=== PATIENT | female | born 1975 | race African-American/Black ===

== ENCOUNTER 2025-05-11 00:57 | Emergency (ER) | payer OTHER, SELFPAY ==
--- NOTE | ~2025-05-11 | XR_ITS ---
CLINICAL HISTORY: left hand 4th digit injury w deformity Exam: AP, lateral, and oblique views of the left hand. Comparison none provided. Findings: Hyperflexion of the DIP joint of the ring finger. Mild extension of the PIP joint of the ring finger. No acute fractures identified. No dislocation. Bony alignment is otherwise anatomic. Impression: 1. No fracture. 2. Hyperflexion of the DIP joint of the ring finger raising the possibility of extensor tendon injury. Clinical correlation advised. This document has been electronically signed by: Abhinav Wilkins MD on 05/11/2025 03:44:40
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
[2025-05-11 00:59] VITALS: BP 153/89; PULSE 111; RESP 20; TEMP 36.7; O2SAT 97; BMI 46.2
--- OUTSIDE RECORDS SUMMARY | 2025-05-11 02:24 | XMS_ITS | Encounter Summary ---
Author Organization [facility] Address [address] [place] [address] Care Team Providers Care Hide And Skin Colerer Name Role Phone Leyda Palacios Primary Care Provider [phone] Encounter Details Date Type Department Care Team (Late st Contact Info) Description 11/14/2023 [employer] Message [facility] Financial Clearance Department [address] [place] [address] Sandy Bledsoe Social History Tobacco Use Types Packs/Day Years Used Date Smoking Tobacco: Every Day Cigarettes Smokeless Tobacco: Never Comments:: Alcohol Use Standard Drinks/Week Comments No 0 (1 standard drink = 0.6 oz pur e alcohol) Comments Unknown Sex and Gender Information Value Date Recorded Sex Assigned at Female 07/05/2020 10:41 AM EST Legal Sex Female 7:28 AM EDT Gender Identity Female 07/05/2020 10:41 AM EST Sexual Orientation Straight 07/05/2020 10 :41 AM EST documented as of this encounter Plan of Treatment Not on file documented as of this encounter Visit Diagnoses Not on filedocumented in this encounter Care Teams Hide And Skin Colerer Relationship Specialty Start Date End Date Leyda Palacios [address] [facility] [address] [place] [address] PCP - General Internal Medicine 07/03/18 documented as of this encounter
--- OUTSIDE RECORDS SUMMARY | 2025-05-11 02:24 | XMS_ITS | Encounter Summary ---
Author Organization [facility] Address [address] [place] [address] Care Team Providers Care Station Master Name Role Phone Leyda Palacios Primary Care Provider [phone] Encounter Details Date Type Department Care Team (Late st Contact Info) Description 07/05/2020 [employer] Message [facility] [address] [place] [address] Yoshi Avila MD [address] [place] [address] Visit Follow-Up Question Social History Tobacco Use Types Packs/Day Years [...] AM EST documented as of this encounter Miscellaneous Notes * Telephone Encounter - Yoshi Avila MD - 07/05/2020 1:02 PM EST Please, see my note regarding the appointment today at 11:15 AM on July 05, 2020. The patient left without being seen. I tried to reestablish communication many times and failed. If she needs it she could be rescheduled also for Zoom teleneurology follow-up with me. Thank you. documented in this encounter Plan of Treatment Not on file documented as of this encounter Visit Diagnoses Not on filedocumented in this encounter Care Teams Station Master Relationship Specialty Start Date End Date Leyda Palacios [address] [address] PCP - General Internal Medicine 07/03/18 documented as of this encounter
--- OUTSIDE RECORDS SUMMARY | 2025-05-11 02:24 | XMS_ITS | Clinical Summary ---
Author Organization [facility] Address [address] [place] [address] Care Team Providers Care Groover Operator Name Role Phone Leyda Palacios Primary Care Provider [phone] Allergies Active Allergy Reactions Criticality Noted Date Comments Sulfamethoxazole-Trimethoprim Unknown 2011 Blueberry Anaphylaxis High Cyclobenzaprine Unknown,Itching High Omeprazole Hives,Itching 02/28/2024 Sulfa (Sulfonamide Antibiotics) Abdominal Pain Medications * This document contains information received from the source organization and may not represent a complete record from that organization. LORazepam (ATIVAN) 0.5 mg tablet Take 0.5 mg by mouth 2 times a day as needed. 03/08/20 17 Active VITAMIN D2 50,000 unit capsule Take 2,000 Units by mouth daily. 07/05/19 18 Active fluticasone (FLONASE) 50 mcg/actuation nasal spray Flonase 50 MCG/ACT Nasal Suspension USE 2 SPRAYS IN EACH NOSTRIL ONCE DAILY Quantity: 48; Refills: 3 [id number] GM Bottle Active MULTIVITAMIN WITH IRON (DAILY MULTIPLE VITAMINS/IRON ORAL) Daily Multiple Vitamins/Iron Oral Tablet TAKE 1 TABLET ONCE DAILY. Refills: 0 Active Active coenzyme Q10 100 mg capsule Take 100 mg by mouth daily. Active furosemide (LASIX) 20 mg tablet TAKE ONE-HALF TABLET BY MOUTH EVERY OTHER DAY NEEDED 15 tablet 5 08/08/19 18 Active betamethasone dipropionate (DIPROLENE) 0.05 % cream Apply 1 application topically to the affected area daily as needed. 0 01/26/20 18 Active clobetasol (OLUX) 0.05 % topical foam Apply 1 application topically to the affected area as needed. Active diazePAM (VALIUM) 5 mg tablet every 12 (twelve) hours. Active fluocinolone and shower cap 0.01 % oil 5 mL. Active cholecalciferol (VITAMIN D3) 2,000 unit tablet Take 1 tablet by mouth daily. Active ferrous sulfate 142 mg (45 mg iron) tablet extended release Take 1 tablet by mouth daily. Active ascorbic acid, vitamin C, (VITAMIN C) 250 mg tablet Take 250 mg by mouth every morning. Active terbinafine (LamiSIL) 250 mg tablet TAKE 1 TABLET BY MOUTH ONCE DAILY FOR 12 WEEKS REPEAT LAB WORK 3 WEEKS INTO TREATMENT 04/10/20 19 Active meloxicam (MOBIC) 15 mg tablet TAKE 1 TABLET BY MOUTH ONCE DAILY FOR 10 DAYS THEN NEEDED 09/12/19 20 Active metroNIDAZOLE (METROGEL) 0.75% vaginal gel metronidazole 0.75 % vaginal gel Insert 1 applicatorful twice a week by vaginal route as directed. Active sertraline (ZOLOFT) 100 mg tablet Take 150 mg by mouth daily. Per pt take 250 mg daily Active rizatriptan (MAXALT) 10 mg tabletIndication s:Other headache syndrome Take 1 tablet (10 mg total) by mouth once as needed for migraine for up to 1 dose. SOON POSSIBLE FOR MIGRAINE. MAY REPEATIN 1 HOUR IF NEEDED 9 tablet 5 05/03/20 21 Active eletriptan (RELPAX) 40 mg tabletIndication s:Other headache syndrome Take 1 tablet (40 mg total) by mouth once as needed for migraine for up to 1 dose. May repeat one time after 2 hours if needed. 6 tablet 5 08/04/19 22 Active butalbitaL-aceta zbuki-xkz-pcr (FIORICET WITH CODEINE) 42-636-39-30 mg per capsuleIndicatio ns:Other headache syndrome Take 2 capsules by mouth every 4 hours as needed for headache. (Disp 30 tabs per 30 days) 30 capsule 2 07/20/19 23 Active topiramate XR (Trokendi XR) 50 mgIndications:Ot her headache syndrome Take 2 pills daily 60 capsule 5 09/08/19 23 Active topiramate XR (Trokendi XR) 25 mg capsule,extended release 24hrIndications: Other headache syndrome Take 1 capsule (25 mg total) by mouth daily. 30 capsule 5 09/08/19 23 Active topiramate XR (Trokendi XR) 100 mgIndications:Ch ronic migraine without aura without status migrainosus, not intractable Take 1 capsule (100 mg total) by mouth once a day. 30 capsule 5 09/21/19 23 Active nortriptyline (PAMELOR) 25 mg capsuleIndicatio ns:Other headache syndrome,Chronic migraine without aura without status migrainosus, not intractable Take 1 capsule by mouth at bedtime 90 capsule 10/15/19 24 Active erenumab-aooe (AIMOVIG) 70 mg/mL auto-injectorInd ications:Other headache syndrome Inject 1 mL (70 mg total) under the skin every 28 days. 1 mL 5 10/25/19 24 Active fremanezumab-vfr m (Ajovy Autoinjector) 225 mg/1.5 mL auto-injectorInd ications:Chronic migraine without aura without status migrainosus, not intractable Inject 1.5 mL (225 mg total) under the skin every 28 days. 1 mL 5 11/27/19 24 Active zaleplon (SONATA) 5 mg capsuleIndicatio ns:Other insomnia Take 1 capsule (5 mg total) by mouth nightly. 30 capsule 5 04/17/20 24 Active fremanezumab-vfr m (AJOVY) 225 mg/1.5 mL auto-injectorInd ications:Other headache syndrome Inject 1.5 mL (225 mg total) under the skin every 28 days. 1 mL 5 04/17/20 24 Active fremanezumab-vfr m (Ajovy Autoinjector) 225 mg/1.5 mL auto-injector Inject 1.5 mL (225 mg total) under the skin every 28 days. 1.5 mL 5 04/18/20 24 Active Active Problems Problem Noted Date Diagnosed Date Thyroid nodule 07/24/2018 Idiopathic intracranial hypertension 12/31/2015 Obstructive sleep apnea syndrome 07/09/2015 Chronic mixed headache syndrome 12/31/2013 Morbid or severe obesity due to excess calories 12/31/2013 Family History Medical History Relation Name Comments Other Maternal Grandmother Family History of malignant neoplasm of breast Other Mother Family history of Ovarian cancer /Family History of asthma Relation Name Status Comments Father Alive Maternal Grandmother Mother Alive Social History Tobacco Use Types Packs/Day Years [...] Orientation Straight 07/05/2020 10 :41 AM EST Last Filed Vital Signs Vital Sign Reading Time Taken Comments Blood Pressure 133/86 04/17/2024 11:17 AM EST Pulse 100 04/17/2024 11:17 AM EST Temperature 37.1 C (98.8 F) 04/17/2024 11:17 AM EST Respiratory Rate 18 04/17/2024 11:17 AM EST Oxygen Saturation - - Inhaled Oxygen Concentration - - Weight 126.1 kg (278 lb) 04/17/2024 11:17 AM EST Height 162.6 cm (5' 4 ) 04/17/2024 11:17 AM EST Body Mass Index 47.72 04/17/2024 11:17 AM EST Plan of Treatment Health Maintenance Due Date Last Done Comments Cervical Cancer Screening 1977 Cologuard 1977 Colon Cancer Screening 1977 Colonoscopy 1977 FOBT / Fit Test 1977 HIV Screening 1977 HPV and Pap Smear 1977 Hepatitis C Screening 1977 Pap Smear 1977 Sigmoidoscopy 1977 Hepatitis B Vaccines (1 of 3 - 19+ 3-dose series) 1996 Mammogram 12/13/2020 12/13/2018 Alcohol/Substance Use Screening 06/11/2024 Depression Screening and Follow-Up 06/11/2024 Social Drivers of Health Annual Screening 06/11/2024 Influenza Vaccine (#1) 2025 COVID-19 Vaccine (3 - 2024- season) 02/09/202501/2021, 07/26/2020 DTaP,Tdap,and Td Vaccines (3 - Td or Tdap) 11/07/2026 11/07/2016, 02/08/2015 Pneumococcal Vaccine: Pediat asa (0-5 Years) and At-Risk Patients (6-50 Years) (3 of 3 - PCV20 or PCV21) 09/18/2027 11/07/2016, 11/07/2016 Insurance HSNO/FREE CARE Care Teams Groover Operator Relationship Specialty Start Date End Date Leyda Palacios [address] [facility] [address] [place] [address] PCP - General Internal Medicine 07/03/18
--- OUTSIDE RECORDS SUMMARY | 2025-05-11 02:24 | XMS_ITS | Encounter Summary ---
Author Organization [facility] Address [address] [place] [address] Care Team Providers Care Administrative Liaison Name Role Phone Leyda Palacios Primary Care Provider [phone] Encounter Details Date Type Department Care Team (Late st Contact Info) Description 12/21/2020 Param[employer] Message [facility] [address] [place] [address] Yoshi Avila MD [address] [place] [address] RE: Non-Urgent Medical Question Social History Tobacco Use Types Packs/Day [...] Telephone Encounter - Yoshi Avila MD - 12/22/2020 2:38 PM EDT As I suggested*2 additional dose of nortriptyline which the patient already has prescribed by her primary care physician or may be mental specialist should be added to her current treatment. If it fails to improve her sleep with the next couple of weeks she should discuss with her primary care physician possibility to add 5 or 10 mg of zaleplon to take them when she wakes up in the middle of the night before 3 or 4 AM or in case if she cannot initiate any meaningful sleep within 30 minutes of trying to get a sleep. Thank you. * Telephone Encounter - Yoshi Avila MD - 12/21/2020 3:59 PM EDT I would recommend to add 25 mg of Trokendi XR to her current treatment in the middle of the day or at bedtime. I hope it will make her protection better and increases efficacy of her rizatriptan. If 10 mg of rizatriptan even with a second or even the third dose do not stop her migraine I might consider replacing it with new medication Nurtec which might require prior authorization of her health insurance but could be quite instrumental in controlling and even preventing her headaches. Also if she is experiencing worsening anxiety or low mood and worsening of her night time sleep additional 25mg of nortriptyline which were already prescribed to her might be useful. Thank you. documented in this encounter Plan of Treatment Not on file documented as of this encounter Visit Diagnoses Not on filedocumented in this encounter Care Teams Administrative Liaison Relationship Specialty Start Date End Date Leyda Palacios [address] [address] PCP - General Internal Medicine 07/03/18 documented as of this encounter
--- OUTSIDE RECORDS SUMMARY | 2025-05-11 02:24 | XMS_ITS | Encounter Summary ---
Author Organization [facility] Address [address] [place] [address] Care Team Providers Care Business Unit Controller Name Role Phone Leyda Palacios Primary Care Provider [phone] Encounter Details Date Type Department Care Team (Late st Contact Info) Description 01/02/2022 myChart Message [facility] [address] [place] [id number] Sydnie Aguilar, CCMA Forms Social History Tobacco Use Types Packs/Day Years [...] on filedocumented in this encounter Care Teams Business Unit Controller Relationship Specialty Start Date End Date Leyda Palacios [address] [facility] [address] [place] [address] PCP - General Internal Medicine 07/03/18 documented as of this encounter
--- OUTSIDE RECORDS SUMMARY | 2025-05-11 02:24 | XMS_ITS | Encounter Summary ---
Author Organization [facility] Address [address] [place] [address] Care Team Providers Care Public Speaking Instructor Name Role Phone Leyda Palacios Primary Care Provider [phone] Reason for Visit * Reason Onset Date Comments Prescription PA 07/11/2022 Encounter Details Date Type Department Care Team (Late st Contact Info) Description 07/11/2022 Telephone [facility] [address] [place] [address] Telephone Intake, Staff Prescription PA Social History Tobacco Use Types Packs/Day Years [...] encounter Miscellaneous Notes * Telephone Encounter - Darleen Aguirre - 07/13/2022 12:05 PM EST Pt called inquiring about her PA topiramate (TROKENDI) XR 50 mg capsule. Pt states she has been without medication and is having headaches. * Telephone Encounter - Chary Day - 07/11/2022 9:41 AM EST Jayme, Pt called stating that she tried to fill topiramate (TROKENDI) XR 50 mg capsule and topiramate XR (Trokendi XR) 25 mg capsule,extended release 24hr Pharmacy stated to pt that it needs a PA. Pt is completely out of both medications documented in this encounter Plan of Treatment Not on file documented as of this encounter Visit Diagnoses Not on filedocumented in this encounter Care Teams Public Speaking Instructor Relationship Specialty Start Date End Date Leyda Palacios [address] [place] [address] PCP - General Internal Medicine 07/03/18 documented as of this encounter
--- OUTSIDE RECORDS SUMMARY | 2025-05-11 02:24 | XMS_ITS | Encounter Summary ---
Author Organization [facility] Address [address] [place] [address] Care Team Providers Care Clinical Account Executive Name Role Phone Suzanne Mcyahir Primary Care Provider [phone] Encounter Details Date Type Department Care Team (Late st Contact Info) Description 11/16/2023 myChart Message [facility] Financial Clearance Department [address] [place] [address] Mychart, Generic Provider [address] [place] [address] SONATA Social History Tobacco Use Types Packs/Day Years [...] on filedocumented in this encounter Care Teams Clinical Account Executive Relationship Specialty Start Date End Date Suzanne Mcmarkuslou [address] [place] [address] PCP - General Internal Medicine 07/03/18 documented as of this encounter
--- OUTSIDE RECORDS SUMMARY | 2025-05-11 02:24 | XMS_ITS | Encounter Summary ---
Author Organization [facility] Address [address] [place] [address] Care Team Providers Care Rug Designer Name Role Phone Leyda Palacios Primary Care Provider [phone] Encounter Details Date Type Department Care Team (Late st Contact Info) Description 05/08/2022 myChart Message [facility] [address] [place] [id number] Sydnie Aguilar, [facility] Social History Tobacco Use Types Packs/Day Years [...] Telephone Encounter - Yoshi Avila MD - 05/09/2022 12:08 PM EST No, she did not. It would be up to her PCP. MV documented in this encounter Plan of Treatment Not on file documented as of this encounter Visit Diagnoses Not on filedocumented in this encounter Care Teams Rug Designer Relationship Specialty Start Date End Date Suzanne Mcyahir [address] [place] [address] PCP - General Internal Medicine 07/03/18 documented as of this encounter
--- OUTSIDE RECORDS SUMMARY | 2025-05-11 02:24 | XMS_ITS | Data Portability ---
Author Organization [facility], Main Office Address [address] [place] [address] Care Team Providers Care Hand Binder Cutter Name Role Phone BRADY JOLLY Information Systems Security Developer [facility] Superintendent Stevedoring [phone] SCOT HUDDLESTON Data Processing Manager ISAURO OLSEN Automatic Driller And Reamer MEG KWOK Urologist NOHEMI TILLMAN Aerial Photogrammetrist [facility] Referring Provider [phone] DEB HATCH Primary Care Provider [phone] YARON NAVAS Soaping Department Supervisor [phone] Assessment No assessment recorded. Plan of Treatment Reminders Order Date Submit Date Provider Last Modified By Organization Details Last Modified Time Details Appointments None recorded. Lab CBC w/ auto diff 2024 025 MAYDA [facility] (Centralized Electronic Ordering - All Locations), Patient Can Go To The Location Of Their Choice, 10:51:51 iron + TIBC + ferritin, serum 2024 025 MAYDA [facility] (Centralized Electronic Ordering - All Locations), Patient Can Go To The Location Of Their Choice, 10:51:51 TSH, ultra-sensi tive, serum 2024 025 MAYDA [facility] (Centralized Electronic Ordering - All Locations), Patient Can Go To The Location Of Their Choice, [id number] 05/09/202 5 10:46:53 CMP, serum or plasma 2024 025 MAYDA [facility] (Centralized Electronic Ordering - All Locations), Patient Can Go To The Location Of Their Choice, 5 10:47:10 vitamin D, 25-hydroxy, total, serum 2024 025 MAYDA [facility] (Centralized Electronic Ordering - All Locations), Patient Can Go To The Location Of Their Choice, 5 10:51:34 lipid panel, serum or plasma 2024 025 MAYDA [facility] (Centralized Electronic Ordering - All Locations), Patient Can Go To The Location Of Their Choice, 5 10:50:43 CBC w/ auto diff 2023 024 MAYDA [facility] (Centralized Electronic Ordering - All Locations), Patient Can Go To The Location Of Their Choice, 4 06:10:43 Referral None recorded. Procedures None recorded. Surgeries None recorded. Imaging None recorded. Medication Orders Zepbound 10 mg/0.5 mL subcutaneou s pen injector 2024 025 MAYDA Not available 10:45:52 Zepbound 5 mg/0.5 mL subcutaneou s pen injector 2024 025 MAYDA Not available 16:33:20 Zepbound 2.5 mg/0.5 mL subcutaneou s pen injector 2023 025 MAYDA Not available 5 09:25:41 butalbital 50 mg-acetamin ophen 325 mg-caffeine 40 mg-codeine 30 mg cap 2023 025 MAYDA Not available 5 09:24:08 butalbital 50 mg-acetamin ophen 325 mg-caffeine 40 mg-codeine 30 mg cap 2023 024 [email or web address] Not available 5 09:24:01 sertraline 50 mg tablet 2023 024 MAYDA Not available 13:21:59 Patient TargetsNo targets recorded. Patient Instructions Encounter Date Encounter Id Patient Instructions Last Modified By Organization Details Last Modified Time 03/28/2024 [id number] To call or retur n for worsening or concerns [email or web address] Not available 03/28/2024 13:21:59 05/29/2024 [id number] Starting a Weight-Loss Plan: Care Instructions [email or web address] Not available 05/29/2024 09:21:23 Nutrition Referral and Weight Management Follow-up Information [email or web address] Not available 05/29/2024 09:21:23 To call or retur n for worsening or concerns jthabet Not available 05/29/2024 09:19:41 08/05/2024 [id number] back strain: car e instructions Not available 08/05/2024 16:17:37 upper and middle back (thoracic) strain: care instructions Not available 08/05/2024 16:17:37 08/27/2024 [id number] low back pain: exercises jthabet Not available 08/27/2024 09:31:21 sacroiliac pain: exercises jthabet Not available 08/27/2024 09:34:00 To call or retur n for worsening or concerns jthabet Not available 08/27/2024 09:25:15 10/17/2024 [id number] body mass index: care instructions Not available 10/17/2024 10:32:59 learning about healthy weight Not available 10/17/2024 10:32:59 high blood pressure: care instructions Not available 10/17/2024 10:33:52 learning about high blood pressure Not available 10/17/2024 10:33:52 dash diet: care instructions Not available 10/17/2024 10:50:40 high cholesterol : care instructions Not available 10/17/2024 10:33:52 Reason for Referral None Reported. Results Created Date Observation Date Name Description Value Unit Range Abnormal Flag Note LastModifiedBy Organization Detail LastModifiedTime 02/29/20 24 03/01/2024 TSH+F REE T4 TSH 0.649 uIU/m L 0.450- 4.500 normal Not Available [facility] ([facility]) [address] [place], [address], 03/01/2024 06:09:47 02/29/20 24 03/01/2024 TSH+F REE T4 T4,free(dire ct) 1.14 NG/dL 0.82-1 .77 normal Not Available [facility] ([facility]) [address] [place], [address], 03/01/2024 06:09:47 02/29/20 24 02/29/2024 CBC WITH DIFFE RENTI AL/PL ATELE T WBC 14.5 x10e3 /uL 3.4-10 .8 above high normal Not Available [facility] ([facility]) [address] [facility], [place], [address], 03/01/2024 06:09:47 02/29/20 24 02/29/2024 CBC WITH DIFFE RENTI AL/PL ATELE T RBC 4.83 x10e6 /uL 3.77-5 .28 normal Not Available [facility] ([facility]) [address] [place], [address], 03/01/2024 06:09:47 02/29/20 24 02/29/2024 CBC WITH DIFFE RENTI AL/PL ATELE T hemoglobin 14.0 g/dL 11.1-1 5.9 normal Not Available [facility] ([facility]) [address] [place], [address], 03/01/2024 06:09:47 02/29/20 24 02/29/2024 CBC WITH DIFFE RENTI AL/PL ATELE T hematocrit 42.1 % 34.0-4 6.6 normal Not Available [facility] ([facility]) [address] [place], [address], 03/01/2024 06:09:47 02/29/20 24 02/29/2024 CBC WITH DIFFE RENTI AL/PL ATELE T MCV 87 fL 79-97 normal Not Available [facility] ([facility]) [address] [place], [address], 03/01/2024 06:09:47 02/29/20 24 02/29/2024 CBC WITH DIFFE RENTI AL/PL ATELE T MCH 29.0 pg 26.6-3 3.0 normal Not Available [facility] ([facility]) [address] [facility], [place], [address], 03/01/2024 06:09:47 02/29/20 24 02/29/2024 CBC WITH DIFFE RENTI AL/PL ATELE T MCHC 33.3 g/dL 31.5-3 5.7 normal Not Available [facility] ([facility]) [address] [place], [address], 03/01/2024 06:09:47 02/29/20 24 02/29/2024 CBC WITH DIFFE RENTI AL/PL ATELE T RDW 13.8 % 11.7-1 5.4 Not Available [facility] ([facility]) [address] [place], [address], 03/01/2024 06:09:47 02/29/20 24 02/29/2024 CBC WITH DIFFE RENTI AL/PL ATELE T platelets 423 x10e3 /uL 150-45 0 normal Not Available [facility] ([facility]) [address] [place], [address], 03/01/2024 06:09:47 02/29/20 24 02/29/2024 CBC WITH DIFFE RENTI AL/PL ATELE T neutrophils 64 % not estab. normal Not Available [facility] ([facility]) [address] [place], [address], 03/01/2024 06:09:47 02/29/20 24 02/29/2024 CBC WITH DIFFE RENTI AL/PL ATELE T lymphs 26 % not estab. normal Not Available [facility] ([facility]) [address] [facility], [place], [address], 03/01/2024 06:09:47 02/29/20 24 02/29/2024 CBC WITH DIFFE RENTI AL/PL ATELE T monocytes 7 % not estab. normal Not Available [facility] ([facility]) [address] [facility], [place], [address], 03/01/2024 06:09:47 02/29/20 24 02/29/2024 CBC WITH DIFFE RENTI AL/PL ATELE T eos 1 % not estab. normal Not Available [facility] ([facility]) [address] [facility], [place], [address], 03/01/2024 06:09:47 02/29/20 24 02/29/2024 CBC WITH DIFFE RENTI AL/PL ATELE T basos 1 % not estab. normal Not Available [facility] ([facility]) [address] [place], [address], 03/01/2024 06:09:47 02/29/20 24 02/29/2024 CBC WITH DIFFE RENTI AL/PL ATELE T immature cells CLINICAL DOCUMENTATION SPEC Not Available [facility] ([facility]) [address] [place], [address], 03/01/2024 06:09:47 02/29/20 24 02/29/2024 CBC WITH DIFFE RENTI AL/PL ATELE T neutrophils (absolute) 9.5 x10e3 /uL 1.4-7. 0 above high normal Not Available [facility] ([facility]) [address] [place], [address], 03/01/2024 06:09:47 02/29/20 24 02/29/2024 CBC WITH DIFFE RENTI AL/PL ATELE T lymphs (absolute) 3.7 x10e3 /uL 0.7-3. 1 above high normal Not Available [facility] ([facility]) [address] [facility], [place], [address], 03/01/2024 06:09:47 02/29/20 24 02/29/2024 CBC WITH DIFFE RENTI AL/PL ATELE T monocytes(ab solute) 1.0 x10e3 /uL 0.1-0. 9 above high normal Not Available [facility] ([facility]) [address] [facility], [place], [address], 03/01/2024 06:09:47 02/29/20 24 02/29/2024 CBC WITH DIFFE RENTI AL/PL ATELE T eos (absolute) 0.2 x10e3 /uL 0.0-0. 4 normal Not Available [facility] ([facility]) [address] [facility], [place], [address], 03/01/2024 06:09:47 02/29/20 24 02/29/2024 CBC WITH DIFFE RENTI AL/PL ATELE T baso (absolute) 0.1 x10e3 /uL 0.0-0. 2 normal Not Available [facility] ([facility]) [address] [facility], [place], [address], 03/01/2024 06:09:47 02/29/20 24 02/29/2024 CBC WITH DIFFE RENTI AL/PL ATELE T immature granulocytes 1 % not estab. Not Available [facility] ([facility]) [address] [place], [address], 03/01/2024 06:09:47 02/29/20 24 02/29/2024 CBC WITH DIFFE RENTI AL/PL ATELE T immature grans (abs) 0.1 x10e3 /uL 0.0-0. 1 Not Available [facility] ([facility]) [address] [place], [address], 03/01/2024 06:09:47 02/29/20 24 02/29/2024 CBC WITH DIFFE RENTI AL/PL ATELE T NRBC CLINICAL DOCUMENTATION SPEC Not Available [facility] ([facility]) [address] [facility], [place], [address], 03/01/2024 06:09:47 02/29/20 24 02/29/2024 CBC WITH DIFFE RENTI AL/PL ATELE T hematology comments: CLINICAL DOCUMENTATION SPEC Not Available [facility] ([facility]) [address] [facility], [place], [address], 03/01/2024 06:09:47 02/29/20 24 03/01/2024 COMP. METAB OLIC PANEL (14) glucose 90 mg/dL 70-99 normal Not Available [facility] ([facility]) [address] [facility] [place], [address], 03/01/2024 06:09:48 02/29/20 24 03/01/2024 COMP. METAB OLIC PANEL (14) BUN 9 mg/dL 6-24 normal Not Available [facility] ([facility]) [address] [facility] [place], [address], 03/01/2024 06:09:48 02/29/20 24 03/01/2024 COMP. METAB OLIC PANEL (14) creatinine 0.82 mg/dL 0.57-1 .00 normal Not Available [facility] ([facility]) [address] [place], [address], 03/01/2024 06:09:48 02/29/20 24 03/01/2024 COMP. METAB OLIC PANEL (14) eGFR 89 mL/mi n/1.7 3 >59 normal Not Available [facility] ([facility]) [address] [facility] [place], [address], 03/01/2024 06:09:48 02/29/20 24 03/01/2024 COMP. METAB OLIC PANEL (14) BUN/creatini ne ratio 11 9-23 normal Not Available [facility] ([facility]) [address] [facility] [place], [address], 03/01/2024 06:09:48 02/29/20 24 03/01/2024 COMP. METAB OLIC PANEL (14) sodium 138 mmol/ L 134-14 4 normal Not Available [facility] ([facility]) [address] [place], [address], 03/01/2024 06:09:48 02/29/20 24 03/01/2024 COMP. METAB OLIC PANEL (14) potassium 4.3 mmol/ L 3.5-5. 2 normal Not Available [facility] ([facility]) [address] [place], [address], 03/01/2024 06:09:48 02/29/20 24 03/01/2024 COMP. METAB OLIC PANEL (14) chloride 100 mmol/ L 96-106 normal Not Available [facility] ([facility]) [address] [place], [address], 03/01/2024 06:09:48 02/29/20 24 03/01/2024 COMP. METAB OLIC PANEL (14) carbon dioxide, total 26 mmol/ L 20-29 normal Not Available [facility] ([facility]) [address] [facility] [place], [address], 03/01/2024 06:09:48 02/29/20 24 03/01/2024 COMP. METAB OLIC PANEL (14) calcium 9.7 mg/dL 8.7-10 .2 normal Not Available [facility] ([facility]) [address] [facility] [place], [address], 03/01/2024 06:09:48 02/29/20 24 03/01/2024 COMP. METAB OLIC PANEL (14) protein, total 7.4 g/dL 6.0-8. 5 normal Not Available [facility] ([facility]) [address] [facility] [place], [address], 03/01/2024 06:09:48 02/29/20 24 03/01/2024 COMP. METAB OLIC PANEL (14) albumin 4.6 g/dL 3.9-4. 9 normal Not Available [facility] ([facility]) [address] [facility] [place], [address], 03/01/2024 06:09:48 02/29/20 24 03/01/2024 COMP. METAB OLIC PANEL (14) globulin, total 2.8 g/dL 1.5-4. 5 Not Available [facility] ([facility]) [address] [facility] [place], [address], 03/01/2024 06:09:48 02/29/20 24 03/01/2024 COMP. METAB OLIC PANEL (14) bilirubin, total 0.5 mg/dL 0.0-1. 2 normal Not Available [facility] ([facility]) [address] [facility] [place], [address], 03/01/2024 06:09:48 02/29/20 24 03/01/2024 COMP. METAB OLIC PANEL (14) alkaline phosphatase 88 IU/L 44-121 normal Not Available [facility] ([facility]) [address] [facility] [place], [address], 03/01/2024 06:09:48 02/29/20 24 03/01/2024 COMP. METAB OLIC PANEL (14) AST (SGOT) 20 IU/L 0-40 normal Not Available [facility] ([facility]) [address] [facility] [place], [address], 03/01/2024 06:09:48 02/29/20 24 03/01/2024 COMP. METAB OLIC PANEL (14) ALT (SGPT) 23 IU/L 0-32 normal Not Available [facility] ([facility]) [address] [facility] [place], [address], 03/01/2024 06:09:48 02/29/2003/01/2024 MAGNE SIUM magnesium 2.3 mg/dL 1.6-2. 3 normal Not Available [facility] ([facility]) [address] [place], [address], 03/01/2024 06:09:49 03/28/2003/29/2024 CBC WITH DIFFE RENTI AL/PL ATELE T WBC 13.6 x10e3 /uL 3.4-10 .8 above high normal Not Available [facility] ([facility]) [address] [facility] [place], [address], 03/29/2024 06:10:43 03/28/2003/29/2024 CBC WITH DIFFE RENTI AL/PL ATELE T RBC 5.27 x10e6 /uL 3.77-5 .28 normal Not Available [facility] ([facility]) [address] [place], [address], 03/29/2024 06:10:43 03/28/2003/29/2024 CBC WITH DIFFE RENTI AL/PL ATELE T hemoglobin 14.8 g/dL 11.1-1 5.9 normal Not Available [facility] ([facility]) [address] [place], [address], 03/29/2024 06:10:43 03/28/2003/29/2024 CBC WITH DIFFE RENTI AL/PL ATELE T hematocrit 46.3 % 34.0-4 6.6 normal Not Available [facility] ([facility]) [address] [place], [address], 03/29/2024 06:10:43 03/28/2003/29/2024 CBC WITH DIFFE RENTI AL/PL ATELE T MCV 88 fL 79-97 normal Not Available [facility] ([facility]) [address] [place], [address], 03/29/2024 06:10:43 03/28/20 03/29/2024 CBC WITH DIFFE RENTI AL/PL ATELE T MCH 28.1 pg 26.6-3 3.0 normal Not Available [facility] ([facility]) [address] [place], [address], 03/29/2024 06:10:43 03/28/2003/29/2024 CBC WITH DIFFE RENTI AL/PL ATELE T MCHC 32.0 g/dL 31.5-3 5.7 normal Not Available [facility] ([facility]) [address] [place], [address], 03/29/2024 06:10:43 03/28/2003/29/2024 CBC WITH DIFFE RENTI AL/PL ATELE T RDW 14.4 % 11.7-1 5.4 Not Available [facility] ([facility]) [address] [place], [address], 03/29/2024 06:10:43 03/28/2003/29/2024 CBC WITH DIFFE RENTI AL/PL ATELE T platelets 354 x10e3 /uL 150-45 0 normal Not Available [facility] ([facility]) [address] [facility] [place], [address], 03/29/2024 06:10:43 03/28/2003/29/2024 CBC WITH DIFFE RENTI AL/PL ATELE T neutrophils 63 % not estab. normal Not Available [facility] ([facility]) [address] [place], [address], 03/29/2024 06:10:43 03/28/2003/29/2024 CBC WITH DIFFE RENTI AL/PL ATELE T lymphs 26 % not estab. normal Not Available [facility] ([facility]) [address] [place], [address], 03/29/2024 06:10:43 03/28/2003/29/2024 CBC WITH DIFFE RENTI AL/PL ATELE T monocytes 7 % not estab. normal Not Available [facility] ([facility]) [address] [facility] [place], [address], 03/29/2024 06:10:43 03/28/2003/29/2024 CBC WITH DIFFE RENTI AL/PL ATELE T eos 2 % not estab. normal Not Available [facility] ([facility]) [address] [facility] [place], [address], 03/29/2024 06:10:43 03/28/2003/29/2024 CBC WITH DIFFE RENTI AL/PL ATELE T basos 1 % not estab. normal Not Available [facility] ([facility]) [address] [facility] [place], [address], 03/29/2024 06:10:43 03/28/2003/29/2024 CBC WITH DIFFE RENTI AL/PL ATELE T immature cells CLINICAL DOCUMENTATION SPEC Not Available [facility] ([facility]) [address] [place], [address], 03/29/2024 06:10:43 03/28/20 24 03/29/2024 CBC WITH DIFFE RENTI AL/PL ATELE T neutrophils (absolute) 8.8 x10e3 /uL 1.4-7. 0 above high normal Not Available [facility] ([facility]) [address] [place], [address], 03/29/2024 06:10:43 03/28/20 24 03/29/2024 CBC WITH DIFFE RENTI AL/PL ATELE T lymphs (absolute) 3.5 x10e3 /uL 0.7-3. 1 above high normal Not Available [facility] ([facility]) [address] [place], [address], 03/29/2024 06:10:43 03/28/20 24 03/29/2024 CBC WITH DIFFE RENTI AL/PL ATELE T monocytes(ab solute) 1.0 x10e3 /uL 0.1-0. 9 above high normal Not Available [facility] ([facility]) [address] [place], [address], 03/29/2024 06:10:43 03/28/2003/29/2024 CBC WITH DIFFE RENTI AL/PL ATELE T eos (absolute) 0.2 x10e3 /uL 0.0-0. 4 normal Not Available [facility] ([facility]) [address] [facility], [place], [address], 03/29/2024 06:10:43 03/28/2003/29/2024 CBC WITH DIFFE RENTI AL/PL ATELE T baso (absolute) 0.1 x10e3 /uL 0.0-0. 2 normal Not Available [facility] ([facility]) [address] [facility] [place], [address], 03/29/2024 06:10:43 03/28/2003/29/2024 CBC WITH DIFFE RENTI AL/PL ATELE T immature granulocytes 1 % not estab. Not Available [facility] ([facility]) [address] [place], [address], 03/29/2024 06:10:43 03/28/2003/29/2024 CBC WITH DIFFE RENTI AL/PL ATELE T immature grans (abs) 0.1 x10e3 /uL 0.0-0. 1 Not Available [facility] ([facility]) [address] [place], [address], 03/29/2024 06:10:43 03/28/2003/29/2024 CBC WITH DIFFE RENTI AL/PL ATELE T NRBC CLINICAL DOCUMENTATION SPEC Not Available [facility] ([facility]) [address] [place], [address], 03/29/2024 06:10:43 03/28/2003/29/2024 CBC WITH DIFFE RENTI AL/PL ATELE T hematology comments: CLINICAL DOCUMENTATION SPEC Not Available [facility] ([facility]) [address] [facility], [place], [address], 03/29/2024 06:10:43 02/27/20 24 02/26/2024 elect kristian diogr am No observ ation record ed. BARCODE In-Office Order Internal Use Only DO Not Attach Compendium DO Not Attach Compendium, Do Not Delete/merge, [id number] 02/27/2024 10:49:15 06/05/20 24 06/05/2024 MAMMO , scree baljit, digit al, bilat eral PROCED URE: MM Digita l Mammo Screen ing INDICA TION: Screen ing for breast cancer . No known palpab le abnorm alitie s. COMPAR KIKI: 020, 12/14/19 19 descri bed as a baseli ne screen ing. TECHNI QUE: Full-f ield digita l CC and MLO 3D tomosy nthesi s images of both breast s were acquir ed. Comput er-aid ed detect ion (CAD) was utiliz ed in the interp retati on of this study. DENSIT Y: The breast s are hetero geneou sly dense, which may obscur e small masses . FINDIN GS: No suspic ious masses , microc alcifi cation s, areas of hanh ectura l distor tion, or skin thicke baljit to sugges t malign galilea. IMPRES MARICARMEN: No mammog raphic eviden ce of malign galilea. RECOMM ENDATI ON: Annual mammog raphic screen ing. BI-RAD S: 1 (Negat brittnee) Lay letter mailed to connorsamantha ashanti WSN: [id number] Orderi ng Physic peggy: Forest Hernandez Dictat ed By: Damian Franklin MD Dictat ed Date/T adrian: 9:35 am Review ed By: Damian Franklin MD Signed By: Damian Franklin MD Signed Date/T adrian: 9:35 am Transc ribed By: CSB Transc riptio n Date/T adrian: 9:33 am Juan : Geetha burrell Class: Outpat ient [facility] (Outpt Imaging) [address], [place], [address], 06/05/2024 09:46:13 06/05/20 24 06/05/2024 MAMMO , scree baljit, bilat eral No observ ation record ed. [email or web address] [facility] Orders [address], [place], [address], 06/06/2024 09:01:43 Result Notes Documentation Provider Name and Address Organization Details Recorded Time Mammo, Screening, Digital, Bilateral : PROCEDURE: MM Digital Mammo Screening INDICATION: Screening for breast cancer. No known palpable abnormalities. COMPARISON: 05/18/2020, 12/13/2018 described as a baseline screening. TECHNIQUE: Full-field digital CC and MLO 3D tomosynthesis images of both breasts were acquired. Computer-aided detection (CAD) was utilized in the interpretation of this study. DENSITY: The breasts are heterogeneously dense, which may obscure small masses. FINDINGS: No suspicious masses, microcalcifications, areas of architectural distortion, or skin thickening to suggest malignancy. IMPRESSION: No mammographic evidence of malignancy. RECOMMENDATION: Annual mammographic screening. BI-RADS: 1 (Negative) Lay letter mailed to patient WSN: [id number] Ordering Physician: Forest Bautista Dictated By: Donnie Soto MD Dictated Date/Time: 06/05/24 9:35 am Reviewed By: Donnie Soto MD Signed By: Donnie Soto MD Signed Date/Time: 06/05/24 9:35 am Transcribed By: YODIT Branding Machine Tender Date/Time: 06/05/24 9:33 am Birads: Patient Class: Outpatient Sarahy van [facility] 06/05/2024 09:46:13 Problems Name Problem SNOMED Code Status Onset Date Resolution Date Notes Provider Name and Address Organization Details Recorded Time Obesity 900142744 Active Argelia van [facility] 0 14:09:01 Body fluid retention 29336256 Active Argelia Christian null, [facility] 0 14:09:01 Cancer cervix - screening done Active Argelia Christian null, [facility] 0 14:09:01 Smoker 96210074 Active Argelia Christian null, [facility] 0 14:09:01 Gastroeso phageal reflux disease 271243201 Active Argelia Christian null, [facility] 0 14:09:01 Abnormal uterine bleeding 33460541324 100 Active Argelia Christian null, [facility] 0 14:09:01 Cyst of thyroid 57810510 Active Argelia Christian null, [facility] 0 14:09:01 Vaginitis 24925686 Active Argelia Christian null, [facility] 0 14:09:01 Polyp of cervix 74447682 Active Argelia Christian null, [facility] 0 14:09:01 Vaginal discharge 970798677 Active Argelia Christian null, [facility] 1 12:03:13 Anemia 776132432 Active Argelia Christian null, [facility] 1 12:03:13 Recurrent urinary tract infection 620884754 Active Argelia Christian null, [facility] 1 12:03:13 Headache disorder 666716512 Active 2013 Argelia Christian null, [facility] 1 12:03:13 Morbid obesity 600277498 Active 2013 Argelia Christian null, [facility] 1 12:03:13 Obstructi ve sleep apnea syndrome 99044994 Active 2015 Argelia Christian null, [facility] 1 12:03:13 Benign intracran ial hypertens ion 30365126 Active 2015 Argelia Christian null, [facility] 0 14:09:01 Lactose intoleran ce Active 2017 Argelia Christian null, [facility] 1 12:03:13 Migraine 13829249 Active 2017 Argelia Christian null, [facility] 0 14:09:01 Anxiety 89463698 Active 2017 Argelia Christian null, [facility] 0 14:09:01 Depressiv e disorder 58581862 Active 2017 Argelia Christian null, [facility] 0 14:09:01 Polyp of corpus uteri 24350088 Active 2017 Argelia van, [facility] 1 12:03:13 Vaginitis 22672378 Completed 201705/14/2018 Pauline angulo MA null, [facility] 8 15:28:58 Thyroid nodule 033812571 Active 2018 Argelia van, [facility] 1 12:03:13 Vitamin D deficienc y 77488894 Active 2021 Deb Hatch PA-C [address], [place], [address] , [facility] 5 10:51:18 Recurrent major depressiv e episodes, moderate 830206216 Active 2021 Leyda Palacios [facility] [address], [place], [address] , [facility] 2 12:51:59 Hyperlipi demia 09593974 Active 2021 Leyda Palacios [facility] [address], [place], [address] , [facility] 2 12:51:59 Iron deficienc y anemia 32807203 Active 2021 ESTEFANI Brand [address] [place] [address], [place], [address] , [facility] 2 12:51:59 Pain of right knee joint [id number] 4100 Active 2021 ESTEFANI Brand [address] [place], [place] [address], [place], [address] , [facility] 2 16:08:35 Tobacco dependenc e syndrome 57723218 Active 2021 ESTEFANI Brand [address] [place] [address], [place], [address] , [facility] 2 09:12:23 Tachycard ia 9079408 Active 2022 ESTEFANI Brand [address] [place] [address], [place], [address] , [facility] 3 13:47:52 Allergic conjuncti vitis 537617303 Active 2022 [facility] [address] [place] [address], [place], [address] , [facility] 3 13:51:46 Essential hypertens ion 49881881 Active 2023 Deb Hatch PA-C Formerly [facility] [address], [place], [address] , [facility] 5 10:33:11 Edema of lower extremity 208274689 Active 2023 ESTEFANI Brand [address] [place] [address], [place], [address] , [facility] 4 11:32:14 Bilateral plantar fasciitis 15102610632 428938 Active 2023 Leyda Palacios ESTEFANI [address] [facility] [address], [place], [address] , [facility] 4 11:41:20 Muscle spasm of cervical muscle of neck 08593815685 4 Active 2023 ESTEFANI Brand [address] [facility] [address], [place], [address] , [facility] 4 11:41:52 Palpitati ons 18014393 Active 2023 Leyda [facility]acios [facility] [address] [facility] [address], [place], [address] , [facility] 4 09:14:46 Gastritis 6808085 Active 2023 ESTEFANI Brand [address] [facility] [address], [place], [address] , [facility] 4 09:19:16 Antidepre ssant discontin uation syndrome Active 2023 Le[facility]da [facility]ios [facility] [address] [facility] [address], [place], [address] , [facility] 4 11:01:19 Body mass index 40+ - severely obese 001348165 Active 2023 Deb Hatch PA-C [address] [facility] [address], [place], [address] , [facility] 5 10:32:55 Low back pain 709406772 Active 2024 Leyda [facility]acios [facility] [address] [facility] [address], [place], [address] , [facility] 5 09:31:04 Problem Notes None recorded. Procedures Surgical History Date Name Laterality Status Provider Name and Address Organization Details Recorded Time 06/05/20 24 Most Recent Mammogram completed Sarahy [facility] 06/05/2024 09:46:09 12/08/20 20 Mammogram screening completed Pauline boss [facility] 11/23/2022 13:20:36 01/09/20 17 Hysteroscopy biopsy completed Pauline boss [facility] 08/28/2017 15:16:57 01/09/20 17 Endometrial Biopsy completed Octavia Fco [facility] 09/03/2017 14:40:15 05/26/20 16 Date of Last Pap Smear completed Pauline boss [facility] 08/28/2017 15:15:45 06/11/19 12 lumbar puncture completed Pauline boss [facility] 05/14/2018 15:31:49 06/11/19 00 Tubal Ligation completed Pauline boss [facility] 08/28/2017 15:01:23 06/11/18 98 ENT Surgery completed Joie Bryan [facility] 11/22/2021 15:32:49 Remove tonsils and adenoids completed Pauline boss [facility] 08/28/2017 15:02:42 hysteroscopic bipolar electrosurgical excision of uterine fibroid completed Pauline boss [facility] 05/14/2018 15:30:52 cholelithotomy completed Pauline boss [facility] 05/14/2018 15:31:10 Imaging Results None recorded. Procedure Notes None recorded. Medical Equipment None Reported. Allergies Allergen ID Allergen Name Allergen Category Reaction Reaction Severity Criticality Documentation Date Start Date Code Code System Note Provider Name and Address Organization Details Recorded Time 84356 Substance with sulfonami de structure and antibacte rial mechanism of action (substanc e) medicatio n abdominal pain vomiting Not available Not available Not available 08/28/2017 60517 8003 SNOMED BACTR IM JOSÉ MIGUEL Menjivar [facility] 0 10:11:45 15804 cyclobenz aprine hydrochlo ride medicatio n itching severe Not available 08/28/2017 73714 RxNorm JOSÉ MIGUEL Menjivar, [facility] 3 12:56:01 53411 blueberry extract food anaphylax is severe Not available 08/28/2017 26350 29 RxNorm JOSÉ MIGUEL Menjivar, [facility] 3 12:56:01 25414 Bactrim medicatio n Not available Not available Not available 12/04/20172011 73759 9 RxNorm JOSÉ MIGUEL Menjivar, [facility] 3 12:56:01 55884 cyclobenz aprine medicatio n itching severe Not available 09/19/2019 35526 RxNorm FLEXE RIL JOSÉ MIGUEL Menjivar, [facility] 0 10:11:55 59922 omeprazol e medicatio n itching Not available Not available 03/28/2024 7646 RxNorm all over body itch Dana JOSÉ MIGUEL Sidhu, [facility] 4 13:06:11 Medications Name Sig Start Date Stop Date Status Note LastModified by Organization Details LastModified Time carisopro dol 350 mg tablet TAKE 1 TABLET BY MOUTH THREE TIMES DAILY FOR [address], WORK OR DRINK ALCOHOL WHILE ON THIS MEDICATI ON active Not Available Not Available No t Available amoxicill in 500 mg capsule 09/11 completed Not Available Not Available Not Available nicotine 14 mg/24 hr daily transderm al patch 12/04 completed Not Available Not Available Not Available clindamyc in HCl 300 mg capsule 12/04 completed Not Available Not Available Not Available azithromy aviva 250 mg tablet TAKE 2 TABLETS (500 MG) BY ORAL ROUTE ONCE DAILY FOR 1 DAY THEN 1 TABLET (250 MG) BY ORAL ROUTE ONCE DAILY FOR 4 DAYS 09/02 completed Not Available Not Available Not Available fluconazo le 150 mg tablet TAKE 1 TABLET BY MOUTH 1 TIME. REPEAT DOSE IF STILL HAVING SYMPTOMS IN 72 HOURS active Not Available Not Available No t Available valacyclo vir 1 gram tablet 08/20 completed Not Available Not Available Not Available meloxicam 15 mg tablet Take 1 tablet every day by oral route as directed for 30 days. 11/13 completed Not Available Not Available Not Available phenazopy ridine 200 mg tablet 12/04 completed Not Available Not Available Not Available metronida zole 0.75 % (37.5 mg/5 gram) vaginal gel INSERT 1 APPLICAT ORFUL VAGINALL Y EVERY SUNDAY - active Not Available Not Available No t Available prednison e 20 mg tablet TAKE 3 TABLETS BY MOUTH ONCE DAILY FOR 2 DAYS, TAKE 2 TABS ONCE DAILY FOR 2 DAYS, THEN TAKE 1 TAB ONCE DAILY FOR 2 DAYS 11/23 completed Not Available Not Available Not Available rizatript an 10 mg tablet Take 1 tablet as needed by oral route as directed for 7 days. active Not Available Not Available No t Available sertralin e 100 mg tablet TAKE 2 TABLETS BY MOUTH EVERY DAY DIRECTED 2024 active Not Available Not Available Not Avai lable terconazo le 0.8 % vaginal cream 09/11 completed Not Available Not Available Not Available metronida zole 500 mg tablet TAKE 1 TABLET BY MOUTH EVERY 12 HOURS FOR 7 DAYS 05/29 completed Not Available Not Available Not Available sulfameth oxazole 800 mg-trimet hoprim 160 mg tablet 11/13 completed Not Available Not Available Not Available butalbita l-acetami nophen-ca ffeine 50 mg-325 mg-40 mg tablet Take 1 tablet every day by oral route as needed for 3 days. 03/28 completed Not Available Not Available Not Available lidocaine -prilocai ne 2.5 %-2.5 % topical cream 08/20 completed Not Available Not Available Not Available nortripty line 25 mg capsule TAKE 1 CAPSULE BY MOUTH EVERY DAY AT BEDTIME active Not Available Not Available No t Available ciclopiro x 8 % topical solution Apply 1 applicat ion by topical route for 15 days. 05/14 completed Not Available Not Available Not Available oxycodone -acetamin ophen 5 mg-325 mg tablet 08/28 completed Not Available Not Available Not Available terbinafi ne HCl 250 mg tablet 09/11 completed Not Available Not Available Not Available lorazepam 0.5 mg tablet TAKE 1 TABLET BY MOUTH TWICE DAILY NEEDED active Not Available Not Available No t Available ascorbic acid (vitamin C) 250 mg tablet Take 250 mg by oral route. 02/19 completed Not Available Not Available Not Available benzonata te 100 mg capsule TAKE 1 CAPSULE BY MOUTH THREE TIMES DAILY FOR 10 DAYS NEEDED 11/26 completed Not Available Not Available Not Available econazole nitrate 1 % topical cream Apply 1 applicat ion every day by topical route. 08/20 completed Not Available Not Available Not Available cephalexi n 500 mg capsule TAKE 1 CAPSULE BY MOUTH FOUR TIMES DAILY FOR 3 DAYS 11/22 completed Not Available Not Available Not Available neomycin- polymyxin -dexameth 3.5 mg/mL-10, 000 unit/mL-0 .1% eye drops SHAKE LIQUID AND INSTILL 1 DROP IN LEFT EYE FOUR TIMES DAILY 03/15 completed Not Available Not Available Not Available nitrofura ntoin macrocrys [place] 100 mg capsule TAKE 1 CAPSULE BY MOUTH DAILY FOR SUPPRESS ION OF UTI active Not Available Not Available No t Available tobramyci n 0.3 % eye drops INSTILL 1 DROP INTO AFFECTED EYE(S) BY OPHTHALM IC ROUTE EVERY 4 HOURS x 7 days 11/22 completed Not Available Not Available Not Available olopatadi ne 0.1 % eye drops INSTILL 1 DROP IN AFFECTED EYE(S) TWICE DAILY FOR 6 TO 8 HOURS active Not Available Not Available No t Available butalbita l 50 mg-acetam inophen 325 mg-caffei ne 40 mg-codein e 30 mg cap TAKE 2 CAPSULES BY MOUTH EVERY 4 HOURS NEEDED FOR HEADACHE 08/27 completed Not Available Not Available Not Available clobetaso l 0.05 % topical foam Apply 1 {applica tion} by topical route. 11/22 completed Not Available Not Available Not Available fluocinol one 0.01 % topical body oil Apply 5 mL by topical route. 11/22 completed Not Available Not Available Not Available betametha sone dipropion ate 0.05 % topical cream 1 {applica tion} by topical route. 05/14 completed Not Available Not Available Not Available gabapenti n 300 mg capsule 08/20 completed Not Available Not Available Not Available sertralin e 25 mg tablet TAKE 1 TABLET BY MOUTH EVERY DAY DIRECTED . TAKE WITH 50MG TABLET FOR TOTAL DOSE OF 75MG FOR 2 WEEKS, THEN INCREASE active Not Available Not Available No t Available omeprazol e 20 mg capsule,d elayed release TAKE 1 CAPSULE BY MOUTH DAILY BEFORE MEALS 03/28 completed Not Available Not Available Not Available clindamyc in 2 % vaginal cream 09/11 completed Not Available Not Available Not Available furosemid e 20 mg tablet TAKE 1 TABLET BY MOUTH EVERY OTHER DAY DIRECTED 2024 active Not Available Not Available Not Avai lable gabapenti n 100 mg capsule Take 1 capsule every day by oral route as needed. 02/25 completed Not Available Not Available Not Available ergocalci ferol (vitamin D2) 1,250 mcg (50,000 unit) capsule TAKE 1 CAPSULE BY MOUTH EVERY WEEK DIRECTED 02/25 completed Not Available Not Available Not Available zaleplon 5 mg capsule TAKE 1 CAPSULE BY MOUTH NIGHTLY active Not Available Not Available No t Available ibuprofen 600 mg tablet 600 mg by oral route. 09/03 completed Not Available Not Available Not Available methylpre dnisolone 4 mg tablets in a dose pack Take 1 dose pk by oral route for 6 days. 09/11 completed Not Available Not Available Not Available sertralin e 50 mg tablet TAKE 1 TABLET BY MOUTH DAILY ALONG WITH TWO 100MG TABLETS FOR TOTAL OF 250 MG 2024 active Not Available Not Available Not Avai lable cholecalc iferol (vitamin D3) 10 mcg (400 unit) tablet 08/20 completed Not Available Not Available Not Available diazepam 5 mg tablet 11/13 completed Not Available Not Available Not Available amoxicill in 875 mg-potass ium clavulana te 125 mg tablet Take 1 tablet every 12 hours by oral route for 10 days. 05/14 completed Not Available Not Available Not Available nicotine 7 mg/24 hr daily transderm al patch 1 patch daily 09/03 completed Not Available Not Available Not Available tobramyci n 0.3 %-dexamet hasone 0.1 % eye drops,saadia pension INSTILL 1 DROP INTO LEFT EYE 4 TIMES DAILY 11/22 completed Not Available Not Available Not Available coenzyme Q10 100 mg capsule 100 mg by oral route. 11/18 completed Not Available Not Available Not Available eletripta n 40 mg tablet TAKE 1 TABLET BY MOUTH ONCE NEEDED FOR MIGRAINE FOR UP TO 1 DOSE. MAY REPEAT DOSE ONE TIME AFTER 2 HOURS IF NEEDED 11/23 completed Not Available Not Available Not Available nitrofura ntoin monohydra te/macroc rystals 100 mg capsule TAKE 1 CAPSULE BY MOUTH TWICE DAILY FOR 7 DAYS 05/29 completed Not Available Not Available Not Available levalbute rol HFA 45 mcg/actua tion aerosol inhaler INHALE 2 PUFFS BY MOUTH EVERY 6 HOURS NEEDED active Not Available Not Available No t Available fluocinol one 0.01 % scalp oil and shower cap Apply 5 mL as needed by topical route as directed for 30 days. 11/22 completed Not Available Not Available Not Available sertralin e 100 mg by mouth daily 11/26 completed Not Available Not Available Not Available Soma 02/25 completed Not Available Not Available Not Available Co Q10 2 po daily, dose unknown active Not Available Not Available No t Available ferrous gluconate 324 mg (38 mg iron) tablet Take 1 tablet twice a day by oral route as directed for 30 days. 11/16 completed Not Available Not Available Not Available cholecalc iferol (vitamin D3) 50 mcg (2,000 unit) tablet TAKE 1 TABLET BY MOUTH DAILY active Not Available Not Available No t Available Slow Fe 142 mg (45 mg iron) tablet,ex tended release 1 {tbl} by oral route. 11/18 completed Not Available Not Available Not Available butalbita l-acetami nophen-ca ffeine 50 mg-300 mg-40 mg capsule Take 1 capsule every 4 hours by oral route as needed for 5 days. 08/27 completed Not Available Not Available Not Available Fioricet with Codeine 50 mg-300 mg-40 mg-30 mg capsule Take 1 1 by oral route. 08/20 completed Not Available Not Available Not Available Trokendi XR 50 mg capsule, extended release Take 1 capsule every day by oral route at bedtime for 90 days. 03/28 completed Not Available Not Available Not Available Trokendi XR 100 mg capsule, extended release Take 1 capsule every day by oral route at bedtime for 90 days, for 150mg at bedtime. 03/28 completed Not Available Not Available Not Available Trokendi XR 25 mg capsule,e xtended release Take 1 capsule every day by oral route as directed for 90 days, for at noon time. 03/28 completed Not Available Not Available Not Available Trokendi XR take po daily 11/22 completed Not Available Not Available Not Available Flonase Allergy Relief 50 mcg/actua tion nasal spray,saadia pension [place] 1 spray every day by intranas al route. active Not Available Not Available No t Available Ajovy 225 mg/1.5 mL subcutane ous auto-inje ctor ADMINIST ER 1.5 ML UNDER THE SKIN EVERY MONTH DIRECTED 2024 active Not Available Not Available Not Avai lable Paxlovid 300 mg (150 mg x 2)-100 mg tablets in a dose pack TK 2 NIRMATRE LVIR TS AND 1 RITONAVI R T TOGETHER PO BID FOR 5 DAYS TWICE DAILY FOR 5 DAYS 11/23 completed Not Available Not Available Not Available Zepbound 10 mg/0.5 mL subcutane ous pen injector Inject 10 mg every week by subcutan eous route for 30 days. 2024 active Not Available Not Available Not Avai lable Zepbound 5 mg/0.5 mL subcutane ous pen injector ADMINIST ER 5 MG UNDER THE SKIN EVERY WEEK DIRECTED 09/17 completed Not Available Not Available Not Available Zepbound 2.5 mg/0.5 mL subcutane ous pen injector ADMINIST ER 2.5 MG UNDER THE SKIN EVERY WEEK DIRECTED 08/27 completed Not Available Not Available Not Available Zepbound 7.5 mg/0.5 mL subcutane ous pen injector ADMINIST ER 7.5 MG UNDER THE SKIN EVERY WEEK DIRECTED 10/17 completed per FABIOLA bernal currentl y active thru Not Available Not Available Not Available Vitals Date Recorded Body height Body mass index (BMI) Body weight Heart rate Oxygen saturation Body temperature Systolic And Diastolic Provider Name and Address Organization Details Last Updated DateTime 161.29 cm 46.9 kg/m2 262536. 05 g 99 /min 96 % 98.3 [degF] 133/84 mm[Hg] Daphney Fernandez LPN [facility] 5 15:05:35 Date Recorded Body mass index (BMI) Body weight Systolic And Diastolic Provider Name and Address Organization Details Last Updated DateTime 08/27/2024 46.6 kg/m2 004012.16 g 138/88 mm[Hg] ESTEFANI Brand [address] [facility] [address] [facility], [place], [address], [facility] 08/27/2024 09:36:44 Date Recorded Body height Heart rate Oxygen saturation Body temperature Systolic And Diastolic Provider Name and Address Organization Details Last Updated DateTime 161.29 cm 97 /min 96 % 97.9 [degF] 144/88 mm[Hg] Van araujo [facility] 5 09:15:40 Date Recorded Body height Body mass index (BMI) Body weight Heart rate Oxygen saturation Body temperature Systolic And Diastolic Provider Name and Address Organization Details Last Updated DateTime 5 161.29 cm 45.5 kg/m2 204525. 61 g 102 /min 95 % 98.3 [degF] 132/87 mm[Hg] [facility] 5 10:15:00 Date Recorded Systolic And Diastolic Provider Name and Address Organization Details Last Updated DateTime 03/28/2024 138/80 mm[Hg] Leyda [facility]acios [facility] [address] [address], [place], [address], [facility] 03/28/2024 13:27:53 Date Recorded Body height Body mass index (BMI) Body weight Heart rate Oxygen saturation Body temperature Systolic And Diastolic Provider Name and Address Organization Details Last Updated DateTime 4 161.29 cm 47.8 kg/m2 876072. 31 g 112 /min 96 % 97.7 [degF] 143/92 mm[Hg] Dana Vale [facility] 4 13:08:23 Date Recorded Body height Body mass index (BMI) Body weight Heart rate Oxygen saturation Body temperature Systolic And Diastolic Provider Name and Address Organization Details Last Updated DateTime 4 161.29 cm 47.9 kg/m2 790134. 9 g 98 /min 97 % 98 [degF] 136/89 mm[Hg] Dana Vale [facility] 4 08:28:38 Social History Question Answer Notes LastModified by Organizat ion Details LastModified Time Tobacco Smoking Status Current Every Day Smoker has quit in past; couple years in between [facility]2017 14:59:43 Do You Have An Advance Directive? No HCP Declined Information not available 11/23/2022 Is Blood Transfusion Acceptable In An Emergency? Yes Information not available 08/28/2017 What Is Your Level Of Caffeine Consumption? Moderate 1 Tea Daily [email or web address] Information not available 11/23/2022 How Much Tobacco Do You Chew? None Information not available 08/28/2017 What Type Of Diet Are You Following? REGULAR Information not available 11/23/2022 Which Illicit Or Recreational Drugs Have You Used? None Information not available 08/28/2017 When Did You Quit Smoking? 1-5yearssin celastcigar ette Information not available 11/23/2022 Live Alone Or With Others? With Others 3 Kids Information not available 11/27/2023 Do You Take Precautions To Prevent Distracted Driving? Yes Information not available 08/28/2017 How Often Do You Need To Have Someone Help You When You Read Instructions, Pamphlets, Or Other Written Material From Your Doctor Or Pharmacy? Never Information not available 08/28/2017 Have You Served In The ? No Information not available 08/28/2017 Have You Or Anyone In Your Household Had Any Of The Following Symptoms In The Last 14 Days: Sore Throat, Cough, Chills, Body Aches For Unknown Reasons, Shortness Of Breath For Unknown Reasons, Loss Of Smell, Loss Of Taste, Fever At Or Greater Than 100 Degrees Fahrenheit? No Information not available 02/20/2020 Are You Or Anyone In Your Household A Health Care Provider Or Emergency Responder? Yes Information not available 02/20/2020 To The Best Of Your Knowledge Have You Been In Close Proximity To Any Individual Who Tested Positive For COVID-19? No Information not available 02/20/2020 What Was The Date Of Your Most Recent Tobacco Screening? 11/27/2023 [email or web address] Information not available 11/27/2023 How Many Children Do You Have? 3 Neal Hillman, And Tracey Information not available 08/28/2017 What Is Your Current Pack Years? 10-19packye ars [email or web address] Information not available 11/23/2022 Do You Use Protection During Sex? Usually Information not available 11/23/2022 Do You Use Your Seat Belt Or Car Seat Routinely? Yes Information not available 11/23/2022 Seat Belts Used Routinely Yes Information not available 11/22/2021 Are You Sexually Active? Yes Information not available 08/28/2017 Smoke Alarm In Home Yes Information not available 11/22/2021 Do You Have Smoke And Carbon Monoxide Detectors In Your Home? Yes Information not available 11/23/2022 At What Age Did You Start Smoking Tobacco? 26 Information not available 08/28/2017 Are You Passively Exposed To Smoke? No Information not available 11/23/2022 How Much Tobacco Do You Smoke? 0.5 PPD Information not available 08/20/2020 Do You Use Sunscreen Routinely? Yes Information not available 11/27/2023 How Many Years Have You Smoked Tobacco? 22 [email or web address] Information not available 08/27/2024 Sex: Unknown Functional Status Question Answer Note LastModified by Organizat ion Details LastModified Time Do you use any illicit or recreational drugs? No Information not available 11/23/2022 Do you or have you ever used any other forms of tobacco or nicotine? No Information not available 11/23/2022 What is your level of alcohol consumption? Occasional rare [email or web address] Information not available 11/23/2022 Do you or have you ever used smokeless tobacco? Never used smokeless tobacco Information not available 08/20/2020 Are you currently employed? No Information not available 11/27/2023 Are you able to walk independently without assistance or assistive devices? YESWOREST Information not available 11/23/2022 Are you able to care for yourself independently? Yes Information not available 08/28/2017 What is your occupation? Other [employer] Information not available 11/21/2024 Do you or have you ever used e-cigarettes or vape? Never used electronic cigarettes Information not available 11/23/2022 What is your exercise level? Occasional Information not available 11/22/2021 Mental Status None recorded. Family History Relationship Description Onset Age of this Age Resolved Age Notes LastModified by Organization Details LastModified Time Mother Asthma 38 [email or web address] Not available 15:34:47 Mother Migraine 17 [email or web address] Not available 08/28/2017 14:56:17 Mother Vertigo [email or web address] Not available 15:26:31 Mother Allergy 39 [email or web address] Not available 0 12/04/2017 15:34:47 Maternal Grandmother Malignant neoplasm of female breast [email or web address] Not available 2021 15:26:31 Maternal Grandmother Hypertensive disorder Mom's side [email or web address] Not available 12/04/2017 15:34:47 Paternal Grandmother Carcinoma in situ of stomach [email or web address] Not available 2021 15:26:31 Maternal Aunt Malignant neoplasm of esophagus [email or web address] Not available 2021 15:26:31 Maternal Aunt Carcinoma in situ of stomach [email or web address] Not available 2021 15:26:31 Paternal Uncle Carcinoma of prostate [email or web address] Not available 2021 15:26:31 Notes:uterine fibroids, sist er, had partial hysterectomy Medical History Condition Response Coronary Artery Disease N Other Y Gout N Kidney Stones N Blood Diseases N Hyperthyroidism N Breast Cancer N mrsa exposure N COPD N Depression N Lung Disease N Hypothyroidism N Defects or Inherited Disease N Developmental or Behavioral Disorders N Breast Problem N Anesthesia Complications N Headaches/Migraines Y Varicose Veins N Anxiety Disorder Y Muscle, Joint, or Bone Problems N Obesity N Vision or Eye Problems N Arthritis N Head Injury/Concussion N Polyps N Infertility N Mental Disorder N Congenital Anomalies N Acid Reflux (GERD) Y Cancer N Stroke N ADHD N Endometriosis N High Cholesterol N Liver Disease N Fibromyalgia N Headaches N Kidney Disease N Heart Problems N Ear or Hearing Problems N Hospitalizations N Thyroid Problems N GI Problems N Developmental Delay N Acne N Skin Problems N Eating Disorder N Anemia Y Constipation N Bladder Problems N Mental Illness N Ovarian Cancer N Diabetes N Bedwetting N Blood Transfusions N Seizures/Epilepsy N Heart Problems/Murmur N Tuberculosis N AIDS/HIV N Congestive Heart Failure (CHF) N Eczema N Diverticulitis N Abuse/Domestic Violence N Allergies Y Asthma N Reflux/GERD N Hepatitis N Heart Disease N Pulmonary Embolism N Hypertension N Osteoporosis N Chicken Pox N Autism Spectrum Disorder (ASD) N Gynecological History Statement/Question Response Flow Light Date of Last Colonoscopy Menses Monthly Yes Duration of Flow (days) 3 Date of Last Pap Smear 05/26/2016 Age at Menarche 17 Current Control Method Tubal Ligat ion Most Recent Mammogram 06/05/2024 LMP Approximate Obstetrics History GPAL:G 4 P 3 0 1 3 Type Value Full Term 3 Induced 1 Living 3 Total 4 Immunizations Vaccine Type Date Status Note Provider Name and Address Organization Details Recorded Time Tdap 017 completed JOSÉ MIGUEL [facility] 02/09/2022 14:56:33 pneumococcal, unspecified formulation 017 completed Argel[facility] 09/08/2020 12:03:00 COVID-19, mRNA, LNP-S, PF, 30 mcg/0.3 mL dose 021 completed JOSÉ MIGUEL [facility] 02/09/2022 14:56:33 COVID-19, mRNA, LNP-S, PF, 30 mcg/0.3 mL dose 021 completed JOSÉ MIGUEL [facility] 02/09/2022 14:56:33 pneumococcal polysaccharide PPV23 017 completed JOSÉ MIGUEL [facility] 02/09/2022 14:56:33 Tdap 015 completed JOSÉ MIGUEL [facility] 02/09/2022 14:56:33 Influenza, split virus, quadrivalent, PF 018 cancelled patient objection Not Available [facility] 06/28/2019 02:22:08 Influenza, split virus, quadrivalent, PF 018 cancelled patient objection Not Available [facility] 06/28/2019 02:22:15 Past Encounters Encounter ID Performer Location Encounter Start Date Encounter Closed Date Diagnosis/Indication Diagnosis SNOMED-CT Code Diagnosis ICD10 Code Diagnosis IMO Codes Diagnosis Note [id number] ESTEFANI Brand Main Office [address] [facility] [place] [address] 08/28/2017 14:29:50 08/28/2017 15:55:57 Adult health examination 369137678 Z00.00 UTD, records requested. Immunization refused 275 171890 Z28.21 Anxiety 29358108 F41.9 has been on lorazepam prior to sx of [facility]. Has been unable to pinpoint any triggers. Some days does not take it at all. some weeks needs it daily. She has never been on a daily med for anxiety/ depression but she is on nortriptyl ine as a dual med for depression and migraines. anxiety is rare and she takes lorazepam as needed. Migraine 48097117 G43.90 9 Started trokendi last year at 25mg, had increased at 07/10 visit. This has lessened her migraine frequency. was getting them twice weekly. now down to 2 monthly. takes rizatripta n 2 doses then if that doesn't help she moves to butalbital with acetaminop hen and codeine. and this usually takes care of it. Major depr essive disorder 293692408 F32.9 Benign int racranial hypertension 88095069 G93.2 Followed by neurology at [facility] Dr. Avila. takes lasix 1 tab every other day. Last seen 06/30/17, next visit 6/6/18. was being followed every 3 months and now up to every 6, stable. [id number] ESTEFANI Brand Main Office [address]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 severe migraine, light sensitivity, N/V, constipation, but dizziness is most bothersome.Has also has chest pain and palpitations. suspect discontinuation syndrome/ withdrawal from meds. presents in f/u as below. feeling much better than she was, not on Trokendi XR due to insurance not covering it, appt Nov with neurology. has been a lot more anxious than normal, taking lorazepam more frequently up to 2-3 times per day. Not currently working which could be increasing anxiety- was too sick to work. Wants to get back to baseline. is looking for another job. Not walking. Leyda Palacios, [facility] [address] [address], [place], [address], [facility] 03/28/2024 13:40:13 4 text/html Generic HPI TemplateReported by PatientPresents for weight loss med discussion.She does not eat much 1 meal/ day not a big meal. snacking during the day,Hurt her heel so is not exercising much, is using vibration plate.Foods are typical yemeni food- rice, chicken, beef, eats salad and lost of spinach. ESTEFANI Brand [address] [address], [place], [address], [facility] 05/29/2024 10:47:48 5 text/html ROS as noted in the HPI 48 year old female c/o mid to lower back pain began yesterday and was initially mild. This morning fahad is worse. Pt. has difficulty twisting or turning, bending. Denies trauma, unusual activity, fall or prior thoracic spine problems. NO numbness or weakness in arms. Deb Hatch PA-C [address] [address], [place], [address], [facility] 08/05/2024 16:18:40 5 text/html Generic HPI TemplateReported by PatientPresents for weight loss med follow-up.She does not eat much 1 meal/ day not a big meal. snacking during the day,Hurt her heel so is not exercising much, is using vibration plate.Foods are typical yemeni food- rice, chicken, beef, eats salad and lost of spinach. started zepbound in may, still on lowest dose, does feel heartburn the 1st couple of days but no change in weight/ not much change in appetite. now eating two meals/ day and tea in the morning. 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 Bilateral low back pain, worse on the left. no radiation of pain, no numbness or tingling. Does walk and sit at work. no heavy lifting, no injury or trauma that she can recall. ESTEFANI Brand [address] [facility] [address], [place], [address], [facility] 08/27/2024 12:17:08 5 text/html Hypertension F/UReported by PatientHPIFor lifestyle, patient reportsnot exercising regularlybut reportslimiting/avoiding salt. For associated symptoms, patient reportsno dizziness,no lightheadedness,no chest pain,no shortness of breath,no palpitations,no edema, andno calf pain with exertion. For medications, patient reportstaking medications as directedandno side effects from medication.Blood pressure is imrpoving with meds and weight loss. ObesityReported by PatientHPIFor lifestyle changes, patient reportsnot exercising morebut reportsmotivated to continue lifestyle changesandlosing weight. For diagnosis summary, patient reportsdiagnosis: obesityandadditional diagnosis: hypertension. For co-morbidities, patient reportsno new co-morbidities since last visit. For nutrition, patient reportseats mostly healthy diet. For physical activity, patient reportsreported frequency of moderate level of physical activity per week: 1-2 days. For associated symptoms, (hyperlipidemia).BMI is 45.5. Generic HPI TemplateReported by PatientPresents for weight loss med follow-up. Pt with h/o essential hypertension , hyperlipidemia.Started on Zepbound in May ( 4-5m ago). Total weight loss is 14-15 lbs consistently, 6 lbs sine the last visit. Doing well on intermediate dose of 7.5 mg except for slight increase in GERD. Pt. developed allergic reaction to PPI. Takes TUMs before the meals.She does not eat much, but 1 meal/ day in the pm due to lack of appetite . Tries to eat more veggies and fruit and some lean proteins. snacking during the day,Tried to hike , but developed pain in both heels and had to decrease activity.Foods are typical yemeni food- rice, chicken, beef, eats salad and lost of spinach.ROS as noted in the HPI Deb Hatch PA-C [address] [address], [place], [phone], [facility] 10/17/2024 14:21:13 OBGyn Episode No OBEpisode recorded.
--- OUTSIDE RECORDS SUMMARY | 2025-05-11 02:24 | XMS_ITS | Encounter Summary ---
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
[2025-05-11 06:31] VITALS: BP 146/93; PULSE 86; RESP 16; TEMP 36.7; O2SAT 97
[2025-05-11 06:32] VITALS: BP 146/93; PULSE 86; RESP 16; TEMP 36.7; O2SAT 97
== END 2025-05-11 06:32 | disposition home or self-care (01) ==
PROVIDERS: Emergency Provider Emergency Medicine
DX: S56.416A Strain of extensor muscle, fascia and tendon of left ring finger at forearm level, initial encounter (principal); S00.531A Contusion of lip, initial encounter; S00.03XA Contusion of scalp, initial encounter; R51.9 Headache, unspecified; M79.642 Pain in left hand; X99.9XXA Assault by unspecified sharp object, initial encounter; Y93.9 Activity, unspecified; Y92.9 Unspecified place or not applicable; Y99.0 Civilian activity done for income or pay
CPT/HCPCS: 70450; 70486; 73120; 99284

== ENCOUNTER → 2025-05-11 02:50 | Outpatient (BNV) | payer OTHER, SELFPAY | PROVIDERS: Emergency Provider Emergency Medicine; Visit Provider Radiology Diagnostic Radiology | DX: R51.9 Headache, unspecified (principal); Y09 Assault by unspecified means; S09.90XA Unspecified injury of head, initial encounter; M21.242 Flexion deformity, left finger joints | CPT/HCPCS: 70450; 70486; 73120 ==

== ENCOUNTER 2025-05-17 15:36 | Emergency (ER) | payer OTHER, SELFPAY ==
--- NOTE | ~2025-05-17 | XR_ITS ---
CLINICAL HISTORY: previous inj. 5th digit unable to bend 3 view left hand Comparison: Left hand radiograph 05/11/2025 Findings: No acute or displaced fracture. No subluxation. Splint material applied to the middle digit. Normal osseous mineralization. Mild left hand osteoarthritis. No acute soft tissue abnormality. Impression: 1. No acute fracture or subluxation. 2. Additional findings as above. This document has been electronically signed by: Marvel Chapman MD on 05/17/2025 16:56:00
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
[2025-05-17 15:39] VITALS: BP 160/89; PULSE 97; RESP 18; TEMP 36.6; O2SAT 97; BMI 45.4
--- NOTE | 2025-05-17 15:42 | ECG_ITS ---
Test Reason : LUE TINGLING Blood Pressure : */* mmHG Vent. Rate : 98 BPM Atrial Rate : 98 BPM P-R Int : 152 ms QRS Dur : 72 ms QT Int : 366 ms P-R-T Axes : 46 14 24 degrees QTcB Int : 467 ms Normal sinus rhythm Possible Left atrial enlargement Borderline ECG No previous ECGs available Referred By: Yanely Pace Electronically Signed By: JESSICA CAMARGO MD
[2025-05-17 16:06] LABS: Hematocrit 44.1 % (37.0-47.0); Hemoglobin 14.4 g/dl (12.0-16.0); Imm Gran Abs Auto 0.08 X10*3/uL (0.00-0.03); Imm Gran Pct Auto 0.5 % (0.0-0.4); Lymphocytes Absolute Auto 3.5 X10*3/uL (1.2-4.9); MANUAL DIFF FLAG NO; Mean Corpuscular HGB Conc 32.7 g/dl (31.0-35.0); Mean Corpuscular Hemoglobin 28.4 pg (27.0-33.0); Mean Corpuscular Volume 87.0 fL (80.0-98.0); NRBC Abs Auto 0.000 X10*3/uL (0.0-0.012); NRBC Pct Auto 0.0 /100WBC (0.0-0.2); Platelet Count 379 X10*3/uL (160-400); Red Blood Count 5.07 X10*6/uL (4.20-5.50); White Blood Count 15.7 X10*3/uL (4.8-10.8)
[2025-05-17 16:24] LABS: Alanine Aminotransferase 38 U/L (0-31); Albumin Level 4.9 g/dL (3.5-5.0); Alkaline Phosphatase 115 U/L (39-117); Anion Gap 14 (12-20); Blood Urea Nitrogen 11 mg/dL (9-16); Calcium 10.2 mg/dL (8.4-10.2); Carbon Dioxide 30 mmol/L (22-29); Chloride 104 mmol/L (96-108); Creatinine Clr Calc Pharmacy 94.4; Estimated Glomerular Filt Rate > 60; Potassium 3.7 mmol/L (3.3-5.1); Sodium 144 mmol/L (135-145); Total Protein 8.3 g/dL (6.5-8.0)
[2025-05-17 16:32] LABS: Troponin-I High Sensitivity < 2.7 ng/L (<3.5-17.0)
[2025-05-17 16:36] LABS: Aspartate Amino Transferase 41 U/L (5-31)
--- OUTSIDE RECORDS SUMMARY | 2025-05-17 19:50 | XMS_ITS | Encounter Summary ---
Author Organization [facility] Address [address] [place] [address] Care Team Providers Care Manager Switch Name Role Phone Leyda Palacios Primary Care Provider [phone] Encounter Details Date Type Department Care Team (Late st Contact Info) Description 07/19/2022 myChart Message [facility] [address] [place] [phone] Yoshi Avila MD [address] [place] [address] Concerns Social History Tobacco Use Types Packs/Day [...] as of this encounter Plan of Treatment Upcoming Encounters Date Type Department Care Team (Late st Contact Info) Description 05/21/2025 2:00 PM EST Office Visit [facility] [address] [place] [address] Ulises Pearson NP [address] [place] [address] documented as of this encounter Visit Diagnoses Not on filedocumented in this encounter Care Teams Manager Switch Relationship Specialty Start Date End Date Leyda Palacios [address] [place] [address] PCP - General Internal Medicine 07/03/18 documented as of this encounter
--- OUTSIDE RECORDS SUMMARY | 2025-05-17 19:50 | XMS_ITS | Clinical Summary ---
Author Organization [facility] Address [address] [place] [address] Care Team Providers Care Belt Notcher Name Role Phone Leyda Palacios Primary Care Provider [phone] Allergies Active Allergy Reactions Criticality Noted Date [...] NOSTRIL ONCE DAILY Quantity: 48; Refills: 3 [id number] GM Bottle Active MULTIVITAMIN WITH IRON (DAILY [...] 6 tablet 5 08/04/19 22 Active butalbitaL-aceta [id number] (FIORICET WITH CODEINE) 25-832-41-30 mg per capsuleIndicatio ns:Other headache syndrome Take [...] 04/17/2024 11:17 AM EST Plan of Treatment Upcoming Encounters Date Type Department Care Team (Late st Contact Info) Description 05/21/2025 2:00 PM EST Office Visit [facility] [address] [place] [address] Ulises Pearson NP [address] [place] [address] Health Maintenance Due Date Last Done Comments [...] 11/07/2016, 11/07/2016 Insurance HSNO/FREE CARE Care Teams Belt Notcher Relationship Specialty Start Date End Date Leyda Palacios [address] [address] PCP - General Internal Medicine 07/03/18
--- OUTSIDE RECORDS SUMMARY | 2025-05-17 19:50 | XMS_ITS | Encounter Summary ---
Author Organization [facility] Address [address] [place] [address] Care Team Providers Care Customer Care Professional Name Role Phone Leyda Palacios Primary Care Provider [phone] Encounter Details Date Type Department Care Team (Late st Contact Info) Description 11/16/2023 [employer] Message [facility] Financial Clearance Department [address] [place] [address] [employer], Generic Provider [address] [place], [place] [id number] [place]ON[place] Social History Tobacco Use Types Packs/Day [...] Description 05/21/2025 2:00 PM EST Office Visit [facility] [address] [place] [address] Ulises Pearson NP [address] [place] [address] documented as of this encounter Visit Diagnoses Not on filedocumented in this encounter Care Teams Customer Care Professional Relationship Specialty Start Date End Date Leyda Palacios [address] [address] PCP - General Internal Medicine 07/03/18 documented as of this encounter
--- OUTSIDE RECORDS SUMMARY | 2025-05-17 19:50 | XMS_ITS | Encounter Summary ---
Author Organization [facility] Address [address] [place] [address] Care Team Providers Care Mason Apprentice Name Role Phone Leyda Palacios Primary Care Provider [phone] Encounter Details Date Type Department Care Team (Late st Contact Info) Description 12/21/2020 myChart Message [facility] [address] [place] [address] [phone] Yoshi Avila MD [address] [place], [place] [phone] RE: Non-Urgent Medical Question Social History Tobacco [...] documented in this encounter Plan of Treatment Upcoming Encounters Date Type Department Care Team (Late st Contact Info) Description 05/21/2025 2:00 PM EST Office Visit [facility] [address] [place] [address] Ulises Pearson NP [address] [place] [address] documented as of this encounter Visit Diagnoses Not on filedocumented in this encounter Care Teams Mason Apprentice Relationship Specialty Start Date End Date Leyda Palacios [address] [address] PCP - General Internal Medicine 07/03/18 documented as of this encounter
--- OUTSIDE RECORDS SUMMARY | 2025-05-17 19:50 | XMS_ITS | Encounter Summary ---
Author Organization [facility] Address [address] [place] [address] Care Team Providers Care Assembly Member Name Role Phone Leyda Palacios Primary Care Provider [phone] Reason for Visit * Reason Onset Date Comments Prescription PA 07/11/2022 Encounter Details Date Type Department Care Team (Late st Contact Info) Description 07/11/2022 Telephone [facility] [address] [place] [phone] Telephone Intake, Staff Prescription PA Social History [...] Chary Day - 07/11/2022 9:41 AM EST Jayme Pt called stating that she tried to [...] Description 05/21/2025 2:00 PM EST Office Visit [facility] [address] [place] [address] Ulises Pearson NP [address] [place] [address] documented as of this encounter Visit Diagnoses Not on filedocumented in this encounter Care Teams Assembly Member Relationship Specialty Start Date End Date Leyda Palacios [address] [facility] [address] [place] [address] PCP - General Internal Medicine 07/03/18 documented as of this encounter
--- OUTSIDE RECORDS SUMMARY | 2025-05-17 19:50 | XMS_ITS | Encounter Summary ---
Author Organization [facility] Address [address] [place] [address] Care Team Providers Care Network Systems Integrator Name Role Phone Leyda Palacios Primary Care Provider [phone] Encounter Details Date Type Department Care Team (Late st Contact Info) Description 01/02/2022 myChart Message [facility] [address] [place] [phone] Sydnie Aguilar, CCMA Forms Social History Tobacco [...] Description 05/21/2025 2:00 PM EST Office Visit [facility] [address] [place] [address] Ulises Pearson NP [address] [place] [address] documented as of this encounter Visit Diagnoses Not on filedocumented in this encounter Care Teams Network Systems Integrator Relationship Specialty Start Date End Date Leyda Palacios [address] [address] PCP - General Internal Medicine 07/03/18 documented as of this encounter
--- OUTSIDE RECORDS SUMMARY | 2025-05-17 19:50 | XMS_ITS | Encounter Summary ---
Author Organization [facility] Address [address] [place] [address] Care Team Providers Care Tabulating Supervisor Name Role Phone Leyda Palacios Primary Care Provider [phone] Encounter Details Date Type Department Care Team (Late st Contact Info) Description 05/08/2022 myChart Message [facility] [address] [place] [id number] Sydnie Aguilar, [facility] Social History Tobacco Use Types Packs/Day Years [...] Description 05/21/2025 2:00 PM EST Office Visit [facility] [address] [place] [address] Ulises Pearson, [place] [address] [place] [address] documented as of this encounter Visit Diagnoses Not on filedocumented in this encounter Care Teams Tabulating Supervisor Relationship Specialty Start Date End Date Leyda Palacios [address] [address] PCP - General Internal Medicine 07/03/18 documented as of this encounter
--- OUTSIDE RECORDS SUMMARY | 2025-05-17 19:50 | XMS_ITS | Encounter Summary ---
Author Organization [facility] Address [address] [place] [address] Care Team Providers Care Field Recorder Name Role Phone Leyda Palacios Primary Care Provider Encounter Details Date Type Department Care Team (Late st Contact Info) Description 11/14/2023 myChart Message [facility] Financial Clearance Department [address] [place] [address] Sandy Bledsoe Social History Tobacco Use Types [...] 05/21/2025 2:00 PM EST Office Visit [facility] [address] [place] [address] Ulises Pearson NP [address] [place], [place] [phone] documented as of this encounter Visit Diagnoses Not on filedocumented in this encounter Care Teams Field Recorder Relationship Specialty Start Date End Date Leyda Palacios [address] [place] [phone] PCP - General Internal Medicine 07/03/18 documented as of this encounter
--- OUTSIDE RECORDS SUMMARY | 2025-05-17 19:50 | XMS_ITS | Encounter Summary ---
Author Organization [facility] Address [address] [place] [address] Care Team Providers Care Strainer Tender Name Role Phone Leyda Palacios Primary Care Provider [phone] Encounter Details Date Type Department Care Team (Late st Contact Info) Description 07/05/2020 myChart Message [facility] [address] [place] [address] [phone] Yoshi Avila MD [address] [place] [address] Visit Follow-Up Question Social History Tobacco Use [...] Description 05/21/2025 2:00 PM EST Office Visit [facility] [address] [place] [address] Ulises Pearson NP [address] [place] [address] documented as of this encounter Visit Diagnoses Not on filedocumented in this encounter Care Teams Strainer Tender Relationship Specialty Start Date End Date Leyda Palacios [address] [address] PCP - General Internal Medicine 07/03/18 documented as of this encounter
--- OUTSIDE RECORDS SUMMARY | 2025-05-17 19:50 | XMS_ITS | Data Portability ---
Author Organization [facility], Main Office Address [address] [place] [address] Care Team Providers Care Analytics Specialist Name Role Phone BRADY JOLLY Healthcare Recruiter [facility] Bank Analyst SCOT HUDDLESTON Farm Technician ISAURO OLSEN Finish Repair Worker MEG KWOK Urologist NOHEMI TILLMAN Donor Relations Associate [facility] Referring Provider DEB HATCH Primary Care Provider [phone] YARON NAVAS Pound Attendant Assessment No assessment recorded. Plan of Treatment Reminders Order Date Submit Date Provider Last Modified By Organization Details Last Modified Time Details Appointments None recorde d. Lab CBC w/ auto diff 2024 025 [email or web address] [facility] (Centralized Electronic Ordering - All Locations), Patient Can Go To The Location Of Their Choice, 10:58:37 iron + TIBC + ferriti n, serum 2024 025 MAYDA [facility] (Centralized Electronic Ordering - All Locations), Patient Can Go To The Location Of Their Choice, 10:51:51 TSH, ultra-s ensitiv e, serum 2024 025 MAYDA [facility] (Centralized Electronic Ordering - All Locations), Patient Can Go To The Location Of Their Choice, 5 10:46:53 CMP, serum or plasma 2024 025 [email or web address] [facility] (Centralized Electronic Ordering - All Locations), Patient Can Go To The Location Of Their Choice, 5 10:58:37 vitamin D, 25-hydr oxy, total, serum 2024 025 [email or web address] [facility] (Centralized Electronic Ordering - All Locations), Patient Can Go To The Location Of Their Choice, 5 10:58:37 lipid panel, serum or plasma 2024 025 MAYDA [facility] (Centralized Electronic Ordering - All Locations), Patient Can Go To The Location Of Their Choice, 10:50:43 CBC w/ auto diff 2023 024 MAYDA [facility] (Centralized Electronic Ordering - All Locations), Patient Can Go To The Location Of Their Choice, 4 06:10:43 Referral None recorde d. Procedures None recorde d. Surgeries None recorde d. Imaging None recorde d. Medication Orders Zepboun d 10 mg/0.5 mL subcuta neous pen injecto r 2024 025 MAYDA Not available 10:45:52 Zepboun d 5 mg/0.5 mL subcuta neous pen injecto r 2024 025 MAYDA Not available 16:33:20 Zepboun d 2.5 mg/0.5 mL subcuta neous pen injecto r 2023 025 MAYDA Not available 09:25:41 butalbi [place] 50 mg-acet aminoph en 325 mg-caff eine 40 mg-code ine 30 mg cap 2023 025 MAYDA Not available 5 09:24:08 butalbi [place] 50 mg-acet aminoph en 325 mg-caff eine 40 mg-code ine 30 mg cap 2023 024 [email or web address] Not available 09:24:01 sertral ine 50 mg tablet 2023 024 MAYDA Not available 13:21:59 Patient TargetsNo targets recorded. Patient Instructions Encounter Date Encounter Id Patient Instructions Last Modified By Organization Details Last Modified Time 03/28/2024 [id number] To call or retur n for worsening or concerns [email or web address] Not available 03/28/2024 13:21:59 05/29/2024 [id number] Starting a Weight-Loss Plan: Care Instructions [email or web address] Not available 05/29/2024 09:21:23 Nutrition Referral and Weight Management Follow-up Information [email or web address] Not available 05/29/2024 09:21:23 To call or retur n for worsening or concerns [email or web address] Not available 05/29/2024 09:19:41 08/05/2024 [id number] back strain: car e instructions Not available 08/05/2024 16:17:37 upper and middle back (thoracic) strain: care instructions Not available 08/05/2024 16:17:37 08/27/2024 [id number] low back pain: exercises jthabet Not available 08/27/2024 09:31:21 sacroiliac pain: exercises jthabet Not available 08/27/2024 09:34:00 To call or retur n for worsening or concerns [email or web address] Not available 08/27/2024 09:25:15 10/17/2024 [id number] body mass index: care instructions Not available [...] L 0.450- 4.500 normal Not Available [facility] ([facility]) [address] [place], [address], 03/01/2024 06:09:47 02/29/20 24 03/01/2024 TSH+F REE T4 T4,free(dire ct) 1.14 NG/dL 0.82-1 .77 normal Not Available [facility] ([facility]) [address] [place], [address], 03/01/2024 06:09:47 02/29/20 24 02/29/2024 CBC WITH DIFFE RENTI AL/PL ATELE T WBC 14.5 x10e3 /uL 3.4-10 .8 above high normal Not Available [facility] ([facility]) [address] [place], [address], 03/01/2024 06:09:47 02/29/20 24 02/29/2024 CBC WITH DIFFE RENTI AL/PL ATELE T RBC 4.83 x10e6 /uL 3.77-5 .28 normal Not Available [facility] ([facility]) [address] [place], [address], 03/01/2024 06:09:47 02/29/20 24 02/29/2024 CBC WITH DIFFE RENTI AL/PL ATELE T hemoglobin 14.0 g/dL 11.1-1 5.9 normal Not Available [facility] ([facility]) [address] [place], [address], 03/01/2024 06:09:47 02/29/20 24 02/29/2024 CBC WITH DIFFE RENTI AL/PL ATELE T hematocrit 42.1 % 34.0-4 6.6 normal Not Available [facility] ([facility]) [address] [place], [address], 03/01/2024 06:09:47 02/29/20 24 02/29/2024 CBC WITH DIFFE RENTI AL/PL ATELE T MCV 87 fL 79-97 normal Not Available [facility] ([facility]) [address] [facility], [place], [address], 03/01/2024 06:09:47 02/29/20 24 02/29/2024 CBC WITH DIFFE RENTI AL/PL ATELE T MCH 29.0 pg 26.6-3 3.0 normal Not Available [facility] ([facility]) [address] [facility], [place], [address], 03/01/2024 06:09:47 02/29/20 24 02/29/2024 CBC WITH DIFFE RENTI AL/PL ATELE T MCHC 33.3 g/dL 31.5-3 5.7 normal Not Available [facility] ([facility]) [address] [facility], [place], [address], 03/01/2024 06:09:47 02/29/20 24 02/29/2024 CBC WITH DIFFE RENTI AL/PL ATELE T RDW 13.8 % 11.7-1 5.4 Not Available [facility] ([facility]) [address] [facility], [place], [address], 03/01/2024 06:09:47 02/29/20 24 02/29/2024 CBC WITH DIFFE RENTI AL/PL ATELE T platelets 423 x10e3 /uL 150-45 0 normal Not Available [facility] ([facility]) [address] [facility], [place], [address], 03/01/2024 06:09:47 02/29/20 24 02/29/2024 CBC WITH DIFFE RENTI AL/PL ATELE T neutrophils 64 % not estab. normal Not Available [facility] ([facility]) [address] [facility], [place], [address], 03/01/2024 06:09:47 02/29/20 24 02/29/2024 CBC WITH DIFFE RENTI AL/PL ATELE T lymphs 26 % not estab. normal Not Available [facility] ([facility]) [address] [facility], [place], [address], 03/01/2024 06:09:47 02/29/20 24 02/29/2024 CBC WITH DIFFE RENTI AL/PL ATELE T monocytes 7 % not estab. normal Not Available [facility] ([facility]) [address] [facility], [place], [address], 03/01/2024 06:09:47 02/29/20 24 02/29/2024 CBC WITH DIFFE RENTI AL/PL ATELE T eos 1 % not estab. normal Not Available [facility] ([facility]) [address] [facility], [place], [address], 03/01/2024 06:09:47 02/29/20 24 02/29/2024 CBC WITH DIFFE RENTI AL/PL ATELE T basos 1 % not estab. normal Not Available [facility] ([facility]) [address] [place], [address], 03/01/2024 06:09:47 02/29/20 24 02/29/2024 CBC WITH DIFFE RENTI AL/PL ATELE T immature cells PRACTICE SPECIALIST Not Available [facility] ([facility]) [address] [place], [address], 03/01/2024 06:09:47 02/29/20 24 02/29/2024 CBC WITH DIFFE RENTI AL/PL ATELE T neutrophils (absolute) 9.5 x10e3 /uL 1.4-7. 0 above high normal Not Available [facility] ([facility]) [address] [place], [address], 03/01/2024 06:09:47 02/29/20 24 02/29/2024 CBC WITH DIFFE RENTI AL/PL ATELE T lymphs (absolute) 3.7 x10e3 /uL 0.7-3. 1 above high normal Not Available [facility] ([facility]) [address] [place], [address], 03/01/2024 06:09:47 02/29/20 24 02/29/2024 CBC WITH DIFFE RENTI AL/PL ATELE T monocytes(ab solute) 1.0 x10e3 /uL 0.1-0. 9 above high normal Not Available [facility] ([facility]) [address] [place], [address], 03/01/2024 06:09:47 02/29/20 24 02/29/2024 CBC WITH DIFFE RENTI AL/PL ATELE T eos (absolute) 0.2 x10e3 /uL 0.0-0. 4 normal Not Available [facility] ([facility]) [address] [place], [address], 03/01/2024 06:09:47 02/29/20 24 02/29/2024 CBC WITH DIFFE RENTI AL/PL ATELE T baso (absolute) 0.1 x10e3 /uL 0.0-0. 2 normal Not Available [facility] ([facility]) [address] [place], [address], 03/01/2024 06:09:47 02/29/20 24 02/29/2024 CBC WITH DIFFE RENTI AL/PL ATELE T immature granulocytes 1 % not estab. Not Available [facility] ([facility]) [address] [place], [address], 03/01/2024 06:09:47 02/29/20 24 02/29/2024 CBC WITH DIFFE RENTI AL/PL ATELE T immature grans (abs) 0.1 x10e3 /uL 0.0-0. 1 Not Available [facility] ([facility]) [address] [place], [address], 03/01/2024 06:09:47 02/29/20 24 02/29/2024 CBC WITH DIFFE RENTI AL/PL ATELE T NRBC PRACTICE SPECIALIST Not Available [facility] ([facility]) [address] [facility], [place], [address], 03/01/2024 06:09:47 02/29/20 24 02/29/2024 CBC WITH DIFFE RENTI AL/PL ATELE T hematology comments: PRACTICE SPECIALIST Not Available [facility] ([facility]) [address] [facility], [place], [address], 03/01/2024 06:09:47 02/29/20 24 03/01/2024 COMP. METAB OLIC PANEL (14) glucose 90 mg/dL 70-99 normal Not Available [facility] ([facility]) [address] [facility] [place], [address], 03/01/2024 06:09:48 02/29/20 24 03/01/2024 COMP. METAB OLIC PANEL (14) BUN 9 mg/dL 6-24 normal Not Available [facility] ([facility]) [address] [place], [address], 03/01/2024 06:09:48 02/29/20 24 03/01/2024 COMP. METAB OLIC PANEL (14) creatinine 0.82 mg/dL 0.57-1 .00 normal Not Available [facility] ([facility]) [address] [facility], [place], [address], 03/01/2024 06:09:48 02/29/20 24 03/01/2024 COMP. METAB OLIC PANEL (14) eGFR 89 mL/mi n/1.7 3 >59 normal Not Available [facility] ([facility]) [address] [place], [address], 03/01/2024 06:09:48 02/29/20 24 03/01/2024 COMP. METAB OLIC PANEL (14) BUN/creatini ne ratio 11 9-23 normal Not Available [facility] ([facility]) [address] [facility] [place], [address], 03/01/2024 06:09:48 02/29/20 24 03/01/2024 COMP. METAB OLIC PANEL (14) sodium 138 mmol/ L 134-14 4 normal Not Available [facility] ([facility]) [address] [facility] [place], [address], 03/01/2024 06:09:48 02/29/20 24 03/01/2024 COMP. METAB OLIC PANEL (14) potassium 4.3 mmol/ L 3.5-5. 2 normal Not Available [facility] ([facility]) [address], [place], [address], 03/01/2024 06:09:48 02/29/20 24 03/01/2024 COMP. METAB OLIC PANEL (14) chloride 100 mmol/ L 96-106 normal Not Available [facility] ([facility]) [address] [facility] [place], [address], 03/01/2024 06:09:48 02/29/20 24 03/01/2024 COMP. METAB OLIC PANEL (14) carbon dioxide, total 26 mmol/ L 20-29 normal Not Available [facility] ([facility]) [address] [facility] [place], [address], 03/01/2024 06:09:48 02/29/20 24 03/01/2024 COMP. METAB OLIC PANEL (14) calcium 9.7 mg/dL 8.7-10 .2 normal Not Available [facility] ([facility]) [address] [facility] [place], [address], 03/01/2024 06:09:48 02/29/20 24 03/01/2024 COMP. METAB OLIC PANEL (14) protein, total 7.4 g/dL 6.0-8. 5 normal Not Available [facility] ([facility]) [address] [place], [address], 03/01/2024 06:09:48 02/29/20 24 03/01/2024 COMP. METAB OLIC PANEL (14) albumin 4.6 g/dL 3.9-4. 9 normal Not Available [facility] ([facility]) [address] [place], [address], 03/01/2024 06:09:48 02/29/20 24 03/01/2024 COMP. METAB OLIC PANEL (14) globulin, total 2.8 g/dL 1.5-4. 5 Not Available [facility] ([facility]) [address] [place], [address], 03/01/2024 06:09:48 02/29/20 24 03/01/2024 COMP. METAB OLIC PANEL (14) bilirubin, total 0.5 mg/dL 0.0-1. 2 normal Not Available [facility] ([facility]) [address] [place], [address], 03/01/2024 06:09:48 02/29/20 24 03/01/2024 COMP. METAB OLIC PANEL (14) alkaline phosphatase 88 IU/L 44-121 normal Not Available [facility] ([facility]) [address] [place], [address], 03/01/2024 06:09:48 02/29/20 24 03/01/2024 COMP. METAB OLIC PANEL (14) AST (SGOT) 20 IU/L 0-40 normal Not Available [facility] ([facility]) [address] [place], [address], 03/01/2024 06:09:48 02/29/20 24 03/01/2024 COMP. METAB OLIC PANEL (14) ALT (SGPT) 23 IU/L 0-32 normal Not Available [facility] ([facility]) [address] [place], [address], 03/01/2024 06:09:48 02/29/2003/01/2024 MAGNE SIUM magnesium 2.3 mg/dL 1.6-2. 3 normal Not Available [facility] ([facility]) [address] [place], [address], 03/01/2024 06:09:49 03/28/2003/29/2024 CBC WITH DIFFE RENTI AL/PL ATELE T WBC 13.6 x10e3 /uL 3.4-10 .8 above high normal Not Available [facility] ([facility]) [address] [place], [address], 03/29/2024 06:10:43 03/28/2003/29/2024 CBC WITH DIFFE RENTI AL/PL ATELE T RBC 5.27 x10e6 /uL 3.77-5 .28 normal Not Available [facility] ([facility]) [address] [place], [address], 03/29/2024 06:10:43 03/28/2003/29/2024 CBC WITH DIFFE RENTI AL/PL ATELE T hemoglobin 14.8 g/dL 11.1-1 5.9 normal Not Available [facility] ([facility]) [address] [place], [address], 03/29/2024 06:10:43 03/28/2003/29/2024 CBC WITH DIFFE RENTI AL/PL ATELE T hematocrit 46.3 % 34.0-4 6.6 normal Not Available [facility] ([facility]) [address] [place], [address], 03/29/2024 06:10:43 03/28/2003/29/2024 CBC WITH DIFFE RENTI AL/PL ATELE T MCV 88 fL 79-97 normal Not Available [facility] ([facility]) [address] [place], [address], 03/29/2024 06:10:43 03/28/20 24 03/29/2024 CBC WITH DIFFE RENTI AL/PL ATELE T MCH 28.1 pg 26.6-3 3.0 normal Not Available [facility] ([facility]) [address] [facility], [place], [address], 03/29/2024 06:10:43 03/28/2003/29/2024 CBC WITH DIFFE RENTI AL/PL ATELE T MCHC 32.0 g/dL 31.5-3 5.7 normal Not Available [facility] ([facility]) [address] [facility], [place], [address], 03/29/2024 06:10:43 03/28/20 24 03/29/2024 CBC WITH DIFFE RENTI AL/PL ATELE T RDW 14.4 % 11.7-1 5.4 Not Available [facility] ([facility]) [address] [facility], [place], [address], 03/29/2024 06:10:43 03/28/2003/29/2024 CBC WITH DIFFE RENTI AL/PL ATELE T platelets 354 x10e3 /uL 150-45 0 normal Not Available [facility] ([facility]) [address] [facility], [place], [address], 03/29/2024 06:10:43 03/28/2003/29/2024 CBC WITH DIFFE RENTI AL/PL ATELE T neutrophils 63 % not estab. normal Not Available [facility] ([facility]) [address] [place], [address], 03/29/2024 06:10:43 03/28/2003/29/2024 CBC WITH DIFFE RENTI AL/PL ATELE T lymphs 26 % not estab. normal Not Available [facility] ([facility]) [address] [place], [address], 03/29/2024 06:10:43 03/28/20 24 03/29/2024 CBC WITH DIFFE RENTI AL/PL ATELE T monocytes 7 % not estab. normal Not Available [facility] ([facility]) [address] [facility], [place], [address], 03/29/2024 06:10:43 03/28/2003/29/2024 CBC WITH DIFFE RENTI AL/PL ATELE T eos 2 % not estab. normal Not Available [facility] ([facility]) [address] [facility], [place], [address], 03/29/2024 06:10:43 03/28/2003/29/2024 CBC WITH DIFFE RENTI AL/PL ATELE T basos 1 % not estab. normal Not Available [facility] ([facility]) [address] [place], [address], 03/29/2024 06:10:43 03/28/2003/29/2024 CBC WITH DIFFE RENTI AL/PL ATELE T immature cells PRACTICE SPECIALIST Not Available [facility] ([facility]) [address] [place], [address], 03/29/2024 06:10:43 03/28/20 24 03/29/2024 CBC WITH DIFFE RENTI AL/PL ATELE T neutrophils (absolute) 8.8 x10e3 /uL 1.4-7. 0 above high normal Not Available [facility] ([facility]) [address] [place], [address], 03/29/2024 06:10:43 03/28/2003/29/2024 CBC WITH DIFFE RENTI AL/PL ATELE T lymphs (absolute) 3.5 x10e3 /uL 0.7-3. 1 above high normal Not Available [facility] ([facility]) [address] [place], [address], 03/29/2024 06:10:43 03/28/20 24 03/29/2024 CBC WITH DIFFE RENTI AL/PL ATELE T monocytes(ab solute) 1.0 x10e3 /uL 0.1-0. 9 above high normal Not Available [facility] ([facility]) [address] [facility], [place], [address], 03/29/2024 06:10:43 03/28/20 24 03/29/2024 CBC WITH DIFFE RENTI AL/PL ATELE T eos (absolute) 0.2 x10e3 /uL 0.0-0. 4 normal Not Available [facility] ([facility]) [address] [facility], [place], [address], 03/29/2024 06:10:43 03/28/20 24 03/29/2024 CBC WITH DIFFE RENTI AL/PL ATELE T baso (absolute) 0.1 x10e3 /uL 0.0-0. 2 normal Not Available [facility] ([facility]) [address] [facility], [place], [address], 03/29/2024 06:10:43 03/28/2003/29/2024 CBC WITH DIFFE RENTI AL/PL ATELE T immature granulocytes 1 % not estab. Not Available [facility] ([facility]) [address] [place], [address], 03/29/2024 06:10:43 03/28/20 24 03/29/2024 CBC WITH DIFFE RENTI AL/PL ATELE T immature grans (abs) 0.1 x10e3 /uL 0.0-0. 1 Not Available [facility] ([facility]) [address] [place], [address], 03/29/2024 06:10:43 03/28/20 24 03/29/2024 CBC WITH DIFFE RENTI AL/PL ATELE T NRBC PRACTICE SPECIALIST Not Available [facility] ([facility]) [address] [place], [address], 03/29/2024 06:10:43 03/28/20 24 03/29/2024 CBC WITH DIFFE RENOBDULIO AL/PL ELY Burrell hematology comments: PRACTICE SPECIALIST Not Available [facility] ([facility]) [address], [place], [address], 03/29/2024 06:10:43 02/27/20 24 02/26/2024 elect rocar diogr am No observ ation record ed. BARCODE In-Office Order Internal Use Only DO Not Attach Compendium DO Not Attach Compendium, Do Not Delete/merge, [id number] 02/27/2024 10:49:15 06/05/2006/05/2024 MAMMO , scree baljit, digit al, bilat [...] 1 (Negat brittnee) Lay letter mailed to jerrod burrell WSN: [id number] Orderi ng Physic peggy: Forest Hernandez Dictat ed By: Damian Franklin MD Dictat ed Date/T adrian: 9:35 am Review ed By: Damian Franklin MD Signed By: Damian Franklin MD Signed Date/T adrian: 9:35 am Transc ribed By: YODIT Transc riptio n Date/T adrian: 9:33 am Birads : Jerrod burrell Class: Outpat ient [email or web address] [facility] (Outpt Imaging) [address], [place], [address], 06/05/2024 09:46:13 06/05/2006/05/2024 MAMMO , scree baljit, bilat eral No observ ation record ed. [email or web address] Orders [address], [place], [address], 06/06/2024 09:01:43 Result Notes Documentation Provider Name [...] (Negative) Lay letter mailed to patient WSN: [id number] Ordering Physician: Forest Bautista Dictated By: Donnie Soto MD Dictated Date/Time: 06/05/24 9:35 am Reviewed By: Donnie Soto MD Signed By: Donnie Soto MD Signed Date/Time: 06/05/24 9:35 am Transcribed By: YODIT Computer Aided Design Operator Date/Time: 06/05/24 9:33 am Birads: [facility]24 09:46:13 Problems Name Problem SNOMED Code Status Onset Date Resolution Date Notes Provider Name and Address Organization Details Recorded Time Obesity 063918311 Active Argelia Christian null, [facility] 0 14:09:01 Body fluid retention 16253072 Active Argelia Christian null, [facility] 0 14:09:01 Cancer cervix - screening done Active Argelia Christian null, [facility] 0 14:09:01 Smoker 25628036 Active Argelia Christian null, [facility] 0 14:09:01 Gastroeso phageal reflux disease 109960242 Active Argelia Christian null, [facility] 0 14:09:01 Abnormal uterine bleeding 50669699413 100 Active Argelia Christian null, [facility] 0 14:09:01 Cyst of thyroid 03553641 Active Argelia Christian null, [facility] 0 14:09:01 Vaginitis 28170549 Active Argelia Christian null, [facility] 0 14:09:01 Polyp of cervix 22050287 Active Argelia Christian null, [facility] 0 14:09:01 Vaginal discharge 013236315 Active Argelia Christian null, [facility] 1 12:03:13 Anemia 155448182 Active Argelia Christian null, [facility] 1 12:03:13 Recurrent urinary tract infection 376133775 Active Argelia Christian null, [facility] 1 12:03:13 Headache disorder 769025977 Active 2013 Argelia Christian null, [facility] 1 12:03:13 Morbid obesity 319349924 Active 2013 Argelia Christian null, [facility] 1 12:03:13 Obstructi ve sleep apnea syndrome 30740422 Active 2015 Argelia Christian null, [facility] 1 12:03:13 Benign intracran ial hypertens ion 58697589 Active 2015 Argelia Gino van, [facility] 0 14:09:01 Lactose intoleran ce Active 2017 Argelia Christian null, [facility] 1 12:03:13 Migraine 46620532 Active 2017 Argelia Christian null, [facility] 0 14:09:01 Anxiety 71321254 Active 2017 Argelia Christian null, [facility] 0 14:09:01 Depressiv e disorder 59161894 Active 2017 Argelia van, [facility] 0 14:09:01 Polyp of corpus uteri 96628250 Active 2017 Argelia Gino van, [facility] 1 12:03:13 Vaginitis 80191881 Completed 201705/14/2018 JOSÉ MIGUEL Olivas, [facility] 8 15:28:58 Thyroid nodule 237303308 Active 2018 Argelia Gino van, [facility] 1 12:03:13 Vitamin D deficienc y 77254301 Active 2021 Deb Hatch PA-C [address] [facility] [address], [place], [address] , [facility] 5 10:51:18 Recurrent major depressiv e episodes, moderate 349035756 Active [address] [facility] [address], [place], [address] , [facility] 2 12:51:59 Hyperlipi demia 61512375 Active 2021 ESTEFANI Brand [address], [place], [address] , [facility] 2 12:51:59 Iron deficienc y anemia 68499083 Active 2021 Leyda Palacios, [facility] [address] [facility] [address], [place], [address] , [facility] 2 12:51:59 Pain of right knee joint 46010146331 4100 Active 2021 Leyda Palacios, [facility] [address] [place] [address] [address], [place], [address] , [facility] 2 16:08:35 Tobacco dependenc e syndrome 93123118 Active 2021 Leyda Palacios, [address], [place], [address] , [facility] 2 09:12:23 Tachycard ia 9564887 Active 2022 Leyda Palacios, [address], [place], [address] , [facility] 3 13:47:52 Allergic conjuncti vitis 568591027 Active 2022 Leyda Palacios, [facility] [address] [place] [address] [address], [place], [address] , [facility] 3 13:51:46 Essential hypertens ion 36960795 Active 2023 Debmagnus Hatch PA-C [address] [facility] [address], [place], [address] , [facility] 5 10:33:11 Edema of lower extremity 210944356 Active 2023 Leyda Palacios, [facility] [address] [facility] [address], [place] [place], [address] , [facility] 4 11:32:14 Bilateral plantar fasciitis [id number] 280364 Active 2023 ESTEFANI Brand [address] [address], [place], [address] , [facility] 4 11:41:20 Muscle spasm of cervical muscle of neck 01462109561 4 Active 2023 ESTEFANI Brand [address] [address], [place], [address] , [facility] 4 11:41:52 Palpitati ons 99025804 Active 2023 ESTEFANI Brand [address] [address], [place], [address] , [facility] 4 09:14:46 Gastritis 6586254 Active 2023 [facility] [address] [address], [place], [address] , [facility] 4 09:19:16 Antidepre ssant discontin uation syndrome Active 2023 ESTEFANI Brand [address] [address], [place], [address] , [facility] 4 11:01:19 Body mass index 40+ - severely obese 861518299 Active 2023 Deb Hatch PA-C [address] [address], [place], [address] , [facility] 5 10:32:55 Low back pain 854121628 Active 2024 ESTEFANI Brand [address] [address], [address] , [facility] 5 09:31:04 Problem Notes None recorded. Procedures Surgical History Date Name Laterality Status Provider Name and Address Organization Details Recorded Time 06/05/20 24 Most Recent Mammogram completed Sarahy Washington [facility] 06/05/2024 09:46:09 05/18/20 20 Mammogram screening completed Pauline boss [place] [facility] 11/23/2022 13:20:36 01/09/20 17 Hysteroscopy biopsy completed Pauline boss [place] [facility] 08/28/2017 15:16:57 01/09/20 17 Endometrial Biopsy completed Octaviaaki Eagle [facility] 09/03/2017 14:40:15 05/26/20 16 Date of Last Pap Smear completed Pauline boss [facility] 08/28/2017 15:15:45 06/11/19 12 lumbar puncture completed Pauline boss [place] [facility] 05/14/2018 15:31:49 06/11/19 00 Tubal Ligation completed Pauline boss [place] [facility] 08/28/2017 15:01:23 06/11/18 98 ENT Surgery completed Joie Bryan [place] [facility] 11/22/2021 15:32:49 Remove tonsils and adenoids completed Pauline boss [place] [facility] 08/28/2017 15:02:42 hysteroscopic bipolar electrosurgical excision of uterine fibroid completed Pauline boss [place] [facility] 05/14/2018 15:30:52 cholelithotomy completed Pauline boss MA [facility] 05/14/2018 15:31:10 Imaging Results None recorded. Procedure Notes None recorded. Medical Equipment None Reported. Allergies Allergen ID Allergen Name Allergen Category Reaction Reaction Severity Criticality Documentation Date Start Date Code Code System Note Provider Name and Address Organization Details Recorded Time 81621 Substance with sulfonami de structure and antibacte rial mechanism of action (substanc e) medicatio n abdominal pain vomiting Not available Not available Not available 08/28/2017 91519 8005 SNOMED BACTR IM JOSÉ MIGUEL Menjivar [facility] 0 10:11:45 83173 cyclobenz aprine hydrochlo ride medicatio n itching severe Not available 08/28/2017 98914 RxNorm JOSÉ MIGUEL Menjivar, [facility] 3 12:56:01 05009 blueberry extract food anaphylax is severe Not available 08/28/2017 23173 29 Rx[facility] 3 12:56:01 03118 Bactrim medicatio n Not available Not available Not available 12/04/20172011 70891 9 RxNorm JOSÉ MIGUEL Menjivar, [facility] 3 12:56:01 12639 cyclobenz aprine medicatio n itching severe Not available 09/19/2019 36474 RxNorm FLEXE RIL JOSÉ MIGUEL Menjivar, [facility] 0 10:11:55 76912 omeprazol e medicatio n itching Not available Not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 schedule. Essential hypertension 61792355 I10 stable, recheck improved. Hyperlipidemia 51435505 E78.5 Obstructiv e sleep apnea syndrome 33979482 G47.33 not on CPAP [id number] Aníbal Claudio MD Main Office [address] [facility] [address] [place] [address] 08/05/2024 14:48:05 08/05/2024 15:28:02 Thoracic back sprain 978694962 S23.3XXA Pt. is recommende d to take Aleve BID with food for 3 days, tylenol PRN if needed as well./ Ice 20 minutes BID. Return to clinic if pain persists or worsens after 2 weeks. [id number] Aníbal Claudio MD Main Office [address] [facility] [address] [place] [address] 08/27/2024 09:03:45 08/27/2024 09:41:10 Body mass index 40+ - severely obese 659454507 E66.01 Z68.41 The patient is over 18 [...] up in 3 months. Low back pain 200410820 M51.369 left sided and right sided low back pain, likely MSK. recommend soma as needed, ice/ heat, gentle stretching as tolerated [id number] Aníbal Claudio MD Main Office [address] [facility] [address] [place] [address] 10/17/2024 09:58:53 10/17/2024 10:54:39 Body mass index 40+ - severely obese 904832464 Z68.42 E66.813 425567 Current BMI is 45.5. PT is on [...] weeks. Check labs: TSH, cmp. Essential hypertension 82717997 I10 92704 imrpoving with weight loss. Continue current med and DASH diet. Hyperlipidemia 55820275 E78.5 retest lipids. Vitamin D deficiency 347 10882 E55.9 69097 Pt. is on 2000 IUs daily of Vit D. Recheck labs. Iron deficiency 72293866 E61.1 Pt. is on [place]. Health Concerns Section Related Observation LastModified by Organization Detai ls LastModified Time None Recorded Concern Status LastModified by Organization Details LastModified Time None Recorded Advance Directives Directive N: HCP declined Payers Insurance Date Sequence Insurance Name Policy Number Policy Christopher Covered Member ID Christopher Member ID Guarantor Name 12/26/2023 1 [facility] ([facility] [id number] 01 Polly I Sincere [id number] Polly I Sincere 02/23/[address] [place] [address] ([facility]) Polly I Sincere [id number] Polly I Sincere 01/22/2025 [facility] Polly I Sincere Polly I Sincere 01/22/2025 1 [place] [facility] Polly I Sincere [id number] Polly I Sincere Notes Date Note Type [...] for another job. Not walking. Leyda Palacios, [facility] [address] [place] [address] [address], [place], [address], [facility] 03/28/2024 13:40:13 4 text/html Generic HPI TemplateReported by PatientPresents for weight loss med discussion.She does not eat much 1 meal/ day not a big meal. snacking during the day,Hurt her heel so is not exercising much, is using vibration plate.Foods are typical zimbabwe[place] food- rice, chicken, beef, eats salad and lost of spinach. Leyda Palaciso, [facility] [address] [address], [place], [address], [facility] 05/29/2024 10:47:48 5 text/html ROS as noted in the HPI 48 year old female c/o mid to lower back pain began yesterday and was initially mild. This morning fahad is worse. Pt. has difficulty twisting or turning, bending. Denies trauma, unusual activity, fall or prior thoracic spine problems. NO numbness or weakness in arms. Deb Hatch PA-C [address] [address], [place], [address], [facility] 08/05/2024 16:18:40 5 text/html Generic HPI TemplateReported by PatientPresents for weight loss med follow-up.She does not eat much 1 meal/ day not a big meal. snacking during the day,Hurt her heel so is not exercising much, is using vibration plate.Foods are typical zimbabwean food- rice, chicken, beef, eats salad and lost of spinach. started zepbound in may, still on lowest dose, does feel heartburn the 1st couple of days but no change in weight/ not much change in appetite. now eating two meals/ day and tea in the morning. 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 Bilateral low back pain, worse on the left. no radiation of pain, no numbness or tingling. Does walk and sit at work. no heavy lifting, no injury or trauma that she can recall. Leyda Palacios, [place] [address] [address], [place], [address], [facility] 08/27/2024 12:17:08 5 text/html Hypertension F/UReported by [...] and had to decrease activity.Foods are typical zimbabwean food- rice, chicken, beef, eats salad and lost of spinach.ROS as noted in the HPI Deb Hatch PA-C [address] [facility] [address], [place], [address], [facility] 10/17/2024 14:21:13 OBGyn Episode No OBEpisode recorded.
[2025-05-17 23:02] VITALS: BP 160/89; PULSE 97; RESP 18; TEMP 36.6; O2SAT 97
== END 2025-05-17 23:02 | disposition home or self-care (01) ==
PROVIDERS: Physician Assistant; Emergency Provider Emergency Medicine Emergency Medical Services
DX: S69.92XA Unspecified injury of left wrist, hand and finger(s), initial encounter (principal); Y04.2XXA Assault by strike against or bumped into by another person, initial encounter; I10 Essential (primary) hypertension; Y93.9 Activity, unspecified; Y92.538 Other ambulatory health services establishments as the place of occurrence of the external cause; Y99.0 Civilian activity done for income or pay
CPT/HCPCS: 36415; 73130; 80048; 80076; 84484; 85025; 93005; 99283; 99284

== ENCOUNTER → 2025-05-17 15:42 | Outpatient (BNV) | payer OTHER, SELFPAY | PROVIDERS: Emergency Provider Emergency Medicine Emergency Medical Services; Visit Provider Internal Medicine Cardiovascular Disease | DX: R20.2 Paresthesia of skin (principal) | CPT/HCPCS: 93010 ==

== ENCOUNTER → 2025-05-17 15:42 | Outpatient (BNV) | payer OTHER, SELFPAY | PROVIDERS: Visit Provider Radiology Diagnostic Radiology | DX: M79.642 Pain in left hand (principal) | CPT/HCPCS: 73130 ==

== ENCOUNTER 2025-05-20 08:14 | Outpatient (AMB) | payer OTHER, SELFPAY ==
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
[2025-05-20 08:40] VITALS: BMI 41.2
== END 2025-05-20 09:11 | disposition home or self-care (01) ==
LOC: HO.HOS 08:15
PROVIDERS: Visit Provider Orthopaedic Surgery
DX: M20.012 Mallet finger of left finger(s) (principal); S56.419A Strain of extensor muscle, fascia and tendon of finger, unspecified finger at forearm level, initial encounter; M25.642 Stiffness of left hand, not elsewhere classified
CPT/HCPCS: 99204

== ENCOUNTER → 2025-05-20 08:16 | Outpatient (BNV) | payer OTHER, SELFPAY | PROVIDERS: Visit Provider Radiology Diagnostic Radiology | DX: M79.642 Pain in left hand (principal) | CPT/HCPCS: 73130 ==

== ENCOUNTER 2025-05-20 15:01 | Outpatient (REF) | payer OTHER, SELFPAY ==
--- NOTE | ~2025-05-20 | XR_ITS ---
EXAMINATION: XR HAND 3 OR MORE VIEWS LEFT HISTORY: M79.642 - Pain in left hand COMPARISON: Comparison is made with prior examinations dated 05/17/2025 and 05/11/2025. FINDINGS: Four views of the left hand are submitted. Osseous mineralization is normal. There is flexion of the 4th DIP joint. There is no fracture or dislocation. The joint spaces are preserved. The soft tissues are unremarkable. XR/XR hand LT min 3V IMPRESSION: Flexion of the 4th DIP joint. Otherwise unremarkable examination of the left hand. Electronically signed by: Konstantin Evans MD 05/20/2025 08:36 AM EST
--- OUTSIDE RECORDS SUMMARY | 2025-05-21 16:00 | XMS_ITS | Encounter Summary ---
Author Organization [facility] Address [address] [place] [address] Care Team Providers Care Exercise Science Internship Name Role Phone Christa Palacioslou Primary Care Provider [phone] Reason for Referral * Physical Therapy (Routine) - Pending Review Specialty Diagnoses / Procedures Referred By Geoffrey burrell Referred To Contact Physical Therapy Diagnoses Other headache syndrome Chronic migraine without aura without status migrainosus, not intractable Ulises Pearson NP [address] [place] [address] Phone: tel: fax: Referral ID Status Reason Start Date Expiration Date Visits Requested Visits Authorized [id number] Pending Review Specialty Services Required 06/21/2026 6 6 Reason for Visit * Consultation (Routine) - Authorized Specialty Diagnoses / Procedures Referred By Geoffrey burrell Referred To Contact Neurology Diagnoses Headache Procedures FOLLOW UP HEADACHE Ulises Pearson NP [address] [place] [address] Phone: tel: fax: Referral ID Status Reason Start Date Expiration Date V isits Requested Visits Authorized [id number] Authorized 05/21/2025 11/20/2026 6 6 Encounter Details Date Type Department Care Team (Late st Contact Info) Description 05/21/2025 4:00 PM EST Office Visit [facility] [address] [place] [address] Ulises Pearson NP [address] [place] [address] Chronic mixed headache syndrome; Chronic migraine without aura without status migrainosus, not intractable Social History Tobacco Use Types Packs/Day Years [...] AM EST documented as of this encounter Last Filed Vital Signs Vital Sign Reading Time Taken Comments Blood Pressure 142/86 05/21/2025 3:54 PM EST Pulse 96 05/21/2025 3:54 PM EST Temperature 36.8 C (98.2 F) 05/21/2025 3:54 PM EST Respiratory Rate 18 05/21/2025 3:54 PM EST Oxygen Saturation 97% 05/21/2025 3:54 PM EST Inhaled Oxygen Concentration - - Weight 121.6 kg (268 lb) 05/21/2025 3:54 PM EST Height 162.6 cm (5' 4 ) 05/21/2025 3:54 PM EST Body Mass Index 46 05/21/2025 3:54 PM EST documented in this encounter Plan of Treatment Upcoming Encounters Date Type Department Care Team (Late st Contact Info) Description 07/06/2025 1:00 PM EST Office Visit [facility] [address] [place] [address] Ulises Pearson NP [address] [place] [address] Scheduled Referrals Name Type Priority Associated Diagnoses Orde r Schedule Ambulatory referral to Physical Therapy Outpatient Referral Routine Chronic mixed headache syndrome Chronic migraine without aura without status migrainosus, not intractable Expected: 05/21/2025, Expires: 06/21/2026 documented as of this encounter Visit Diagnoses Diagnosis Chronic mixed headache syndrome Chronic migraine without aura without status migrainosus, not intractable documented in this encounter Care Teams Exercise Science Internship Relationship Specialty Start Date End Date Leyda Palacios [address] [address] PCP - General Internal Medicine 07/03/18 documented as of this encounter
--- OUTSIDE RECORDS SUMMARY | 2025-05-21 22:33 | XMS_ITS | Encounter Summary ---
Author Organization [facility] Address [address] [place] [address] Care Team Providers Care Assembly Line Inspector Name Role Phone Leyda Palacios Primary Care Provider [phone] Encounter Details Date Type Department Care Team (Late st Contact Info) Description 12/21/2020 myChart Message [facility] [address] [place] [address] [id number] Yoshi Avila MD [address] [place], [place] [phone] RE: Non-Urgent Medical Question Social History Tobacco [...] Description 07/06/2025 1:00 PM EST Office Visit [facility] [address] [place] [address] Ulises Paerson NP [address] [place] [address] documented as of this encounter Visit Diagnoses Not on filedocumented in this encounter Care Teams Assembly Line Inspector Relationship Specialty Start Date End Date Leyda Palacios [address] [address] PCP - General Internal Medicine 07/03/18 documented as of this encounter
--- OUTSIDE RECORDS SUMMARY | 2025-05-21 22:33 | XMS_ITS | Encounter Summary ---
Author Organization [facility] Address [address] [place] [address] Care Team Providers Care Individual Pension Adviser Name Role Phone MikeLeyda hughes Primary Care Provider Encounter Details Date Type Department Care Team (Late st Contact Info) Description 07/19/2022 myChart Message [facility] [address] [place] [address] Yoshi Avila MD [address] [place] [address] Concerns Social History Tobacco Use Types Packs/Day [...] Description 07/06/2025 1:00 PM EST Office Visit [facility] [address] [place] [address] Ulises Pearson NP [address] [place] [address] documented as of this encounter Visit Diagnoses Not on filedocumented in this encounter Care Teams Individual Pension Adviser Relationship Specialty Start Date End Date Leyda Palacios [address] [place] [address] PCP - General Internal Medicine 07/03/18 documented as of this encounter
--- OUTSIDE RECORDS SUMMARY | 2025-05-21 22:33 | XMS_ITS | Encounter Summary ---
Author Organization [facility] Address [address] [place] [address] Care Team Providers Care Hospice Executive Director Name Role Phone Suzanne Mcmarkuslou Primary Care Provider [phone] Reason for Visit * Reason Onset Date Comments Insurance Investigation 05/21/2025 Ajovy 22 5mg/1.5ml Auto-Injector and Nurtec 75mg ODT Encounter Details Date Type Department Care Team (Late Contact Info) Description 05/21/2025 Telephone [facility] [address] [place] [address] Ulises Pearson NP [address] [place] [address] Insurance Investigation (Ajovy 225mg/1.5ml Auto-Injector and Nurtec 75mg ODT) Social History Tobacco Use Types Packs/Day Years [...] Description 07/06/2025 1:00 PM EST Office Visit [facility] [address] [place] [address] Ulises Pearson, [place]AL[place] [address] [place] [address] documented as of this encounter Visit Diagnoses Not on filedocumented in this encounter Care Teams Hospice Executive Director Relationship Specialty Start Date End Date Leyda Palacios [address] [address] PCP - General Internal Medicine 07/03/18 documented as of this encounter
--- OUTSIDE RECORDS SUMMARY | 2025-05-21 22:33 | XMS_ITS | Encounter Summary ---
Author Organization [facility] Address [address] [place] [address] Care Team Providers Care Advertising Operations Manager Name Role Phone Leyda Palacios Primary Care Provider [phone] Encounter Details Date Type Department Care Team (Late st Contact Info) Description 11/16/2023 [email or web address] Message [facility] Financial Clearance Department [address] [place] [address] MycharParudi, Generic Provider [address] [place], [place] [id number] SONATA Social History Tobacco Use Types Packs/Day [...] Description 07/06/2025 1:00 PM EST Office Visit [facility] [address] [place] [address] Ulises Pearson NP [address] [place] [address] documented as of this encounter Visit Diagnoses Not on filedocumented in this encounter Care Teams Advertising Operations Manager Relationship Specialty Start Date End Date Leyda Palacios [address] [address] PCP - General Internal Medicine 07/03/18 documented as of this encounter
--- OUTSIDE RECORDS SUMMARY | 2025-05-21 22:33 | XMS_ITS | Encounter Summary ---
Author Organization [facility] Address [address] [place] [address] Care Team Providers Care Landscaping And Groundskeeping Laborer Name Role Phone Leyda Palacios Primary Care Provider [phone] Encounter Details Date Type Department Care Team (Late st Contact Info) Description 05/08/2022 myChart Message [facility] [address] [place] [id number] Sydnie Aguilar, [facility] Social History Tobacco Use Types Packs/Day Years [...] Description 07/06/2025 1:00 PM EST Office Visit [facility] [address] [place] [phone] Ulises Pearson, AMALIA [address] [place] [address] documented as of this encounter Visit Diagnoses Not on filedocumented in this encounter Care Teams Landscaping And Groundskeeping Laborer Relationship Specialty Start Date End Date Leyda Palacios [address] [address] PCP - General Internal Medicine 07/03/18 documented as of this encounter
--- OUTSIDE RECORDS SUMMARY | 2025-05-21 22:33 | XMS_ITS | Encounter Summary ---
Author Organization [facility] Address [address] [place] [address] Care Team Providers Care Switch House Operator Name Role Phone Leyda Palacios Primary Care Provider [phone] Encounter Details Date Type Department Care Team (Late st Contact Info) Description 01/02/2022 myChart Message [facility] [address] [place] [phone] Sydnie Aguilar, CCMA Forms Social History Tobacco [...] Description 07/06/2025 1:00 PM EST Office Visit [facility] [address] [place] [address] Ulises Pearson NP [address] [place] [address] documented as of this encounter Visit Diagnoses Not on filedocumented in this encounter Care Teams Switch House Operator Relationship Specialty Start Date End Date Leyda Palacios [address] [id number] PCP - General Internal Medicine 07/03/18 documented as of this encounter
--- OUTSIDE RECORDS SUMMARY | 2025-05-21 22:33 | XMS_ITS | Encounter Summary ---
Author Organization [facility] Address [address] [place] [address] Care Team Providers Care Bullard Operator Name Role Phone Leyda Palacios Primary Care Provider [phone] Reason for Visit * Reason Onset Date Comments Prescription PA 07/11/2022 Encounter Details Date Type Department Care Team (Late st Contact Info) Description 07/11/2022 Telephone [facility] [address] [place] [phone] Telephone Intake, Staff Prescription PA Social History [...] Description 07/06/2025 1:00 PM EST Office Visit [facility] [address] [place] [address] Ulises Pearson NP [address] [place] [address] documented as of this encounter Visit Diagnoses Not on filedocumented in this encounter Care Teams Bullard Operator Relationship Specialty Start Date End Date Leyda Palacios [address] [facility] [address] [place] [id number] PCP - General Internal Medicine 07/03/18 documented as of this encounter
--- OUTSIDE RECORDS SUMMARY | 2025-05-21 22:33 | XMS_ITS | Encounter Summary ---
Author Organization [facility] Address [address] [place] [address] Care Team Providers Care Gas Furnace Installer Name Role Phone Leyda Palacios Primary Care Provider [phone] Encounter Details Date Type Department Care Team (Late st Contact Info) Description 11/14/2023 myChart Message [facility] Financial Clearance Department [address] [place] [phone] Sandy Bledsoe Social History Tobacco Use Types [...] Description 07/06/2025 1:00 PM EST Office Visit [facility] [address] [place] [address] Ulises Pearson NP [address] [place], [place] [phone] documented as of this encounter Visit Diagnoses Not on filedocumented in this encounter Care Teams Gas Furnace Installer Relationship Specialty Start Date End Date Leyda Palacios [address] [place] [id number] PCP - General Internal Medicine 07/03/18 documented as of this encounter
--- OUTSIDE RECORDS SUMMARY | 2025-05-21 22:33 | XMS_ITS | Data Portability ---
Author Organization [facility], Main Office Address [address] [place] [address] Care Team Providers Care Supervisor Frame Assembly Name Role Phone BRADY JOLLY Machine Operator [facility] [employer]ter [phone] SCOT HUDDLESTON Sorority Mother ISAURO OLSEN Product Management Analyst MEG KWOK Urologist NOHEMI TILLMAN Aircraft Pneudraulics Repairer [facility] Referring Provider DEB HATCH Primary Care Provider YARON NAVAS System Software Developer [phone] Assessment No assessment recorded. Plan of Treatment [...] By Organization Details Last Modified Time 03/28/2024 [id number] To call or retur n for worsening or concerns [email or web address] Not available 03/28/2024 13:21:59 05/29/2024 [id number] Starting a Weight-Loss Plan: Care Instructions [email or web address] Not available 05/29/2024 09:21:23 Nutrition Referral and Weight Management Follow-up Information [email or web address] Not available 05/29/2024 09:21:23 To call or retur n for worsening or concerns [email or web address] Not available 05/29/2024 09:19:41 08/05/2024 [id number] back strain: car e instructions Not available 08/05/2024 16:17:37 upper and middle back (thoracic) strain: care instructions Not available 08/05/2024 16:17:37 08/27/2024 [id number] low back pain: exercises [email or web address] Not available 08/27/2024 09:31:21 sacroiliac pain: exercises [email or web address] Not available 08/27/2024 09:34:00 To call or retur n for worsening or concerns [email or web address] Not available 08/27/2024 09:25:15 10/17/2024 [id number] body mass index: care instructions Not available [...] L 0.450- 4.500 normal Not Available [facility] ([facility]) [address] [place], [address], 03/01/2024 06:09:47 02/29/20 24 03/01/2024 TSH+F REE T4 T4,free(dire ct) 1.14 NG/dL 0.82-1 .77 normal Not Available [facility] ([facility]) [address] [place], [address], 03/01/2024 06:09:47 02/29/20 24 02/29/2024 CBC WITH DIFFE RENTI AL/PL ATELE T WBC 14.5 x10e3 /uL 3.4-10 .8 above high normal Not Available [facility] ([facility]) [address] [place], [address], 03/01/2024 06:09:47 02/29/20 24 02/29/2024 CBC WITH DIFFE RENTI AL/PL ATELE T RBC 4.83 x10e6 /uL 3.77-5 .28 normal Not Available [facility] ([facility]) [address] [place], [address], 03/01/2024 06:09:47 02/29/20 24 02/29/2024 CBC WITH DIFFE RENTI AL/PL ATELE T hemoglobin 14.0 g/dL 11.1-1 5.9 normal Not Available [facility] ([facility]) [address] [place], [address], 03/01/2024 06:09:47 02/29/20 24 02/29/2024 CBC WITH DIFFE RENTI AL/PL ATELE T hematocrit 42.1 % 34.0-4 6.6 normal Not Available [facility] ([facility]) [address] [place], [address], 03/01/2024 06:09:47 02/29/20 24 02/29/2024 CBC WITH DIFFE RENTI AL/PL ATELE T MCV 87 fL 79-97 normal Not Available [facility] ([facility]) [address] [facility], [place], [address], 03/01/2024 06:09:47 02/29/20 24 02/29/2024 CBC WITH DIFFE RENTI AL/PL ATELE T MCH 29.0 pg 26.6-3 3.0 normal Not Available [facility] ([facility]) [address] [facility], [place], [address], 03/01/2024 06:09:47 02/29/20 24 02/29/2024 CBC WITH DIFFE RENTI AL/PL ATELE T MCHC 33.3 g/dL 31.5-3 5.7 normal Not Available [facility] ([facility]) [address] [facility], [place], [address], 03/01/2024 06:09:47 02/29/20 24 02/29/2024 CBC WITH DIFFE RENTI AL/PL ATELE T RDW 13.8 % 11.7-1 5.4 Not Available [facility] ([facility]) [address] [facility], [place], [address], 03/01/2024 06:09:47 02/29/20 24 02/29/2024 CBC WITH DIFFE RENTI AL/PL ATELE T platelets 423 x10e3 /uL 150-45 0 normal Not Available [facility] ([facility]) [address] [facility], [place], [address], 03/01/2024 06:09:47 02/29/20 24 02/29/2024 CBC WITH DIFFE RENTI AL/PL ATELE T neutrophils 64 % not estab. normal Not Available [facility] ([facility]) [address] [facility], [place], [address], 03/01/2024 06:09:47 02/29/20 24 02/29/2024 CBC WITH DIFFE RENTI AL/PL ATELE T lymphs 26 % not estab. normal Not Available [facility] ([facility]) [address] [facility], [place], [address], 03/01/2024 06:09:47 02/29/20 24 02/29/2024 CBC WITH DIFFE RENTI AL/PL ATELE T monocytes 7 % not estab. normal Not Available [facility] ([facility]) [address] [facility], [place], [address], 03/01/2024 06:09:47 02/29/20 24 02/29/2024 CBC WITH DIFFE RENTI AL/PL ATELE T eos 1 % not estab. normal Not Available [facility] ([facility]) [address] [facility], [place], [address], 03/01/2024 06:09:47 02/29/20 24 02/29/2024 CBC WITH DIFFE RENTI AL/PL ATELE T basos 1 % not estab. normal Not Available [facility] ([facility]) [address] [place], [address], 03/01/2024 06:09:47 02/29/20 24 02/29/2024 CBC WITH DIFFE RENTI AL/PL ATELE T immature cells RECEIVING SPECIALIST Not Available [facility] ([facility]) [address] [place], [address], 03/01/2024 06:09:47 02/29/20 24 02/29/2024 CBC WITH DIFFE RENTI AL/PL ATELE T neutrophils (absolute) 9.5 x10e3 /uL 1.4-7. 0 above high normal Not Available [facility] ([facility]) [address] [place], [address], 03/01/2024 06:09:47 02/29/20 24 02/29/2024 CBC WITH DIFFE RENTI AL/PL ATELE T lymphs (absolute) 3.7 x10e3 /uL 0.7-3. 1 above high normal Not Available [facility] ([facility]) [address] [place], [address], 03/01/2024 06:09:47 02/29/20 24 02/29/2024 CBC WITH DIFFE RENTI AL/PL ATELE T monocytes(ab solute) 1.0 x10e3 /uL 0.1-0. 9 above high normal Not Available [facility] ([facility]) [address] [place], [address], 03/01/2024 06:09:47 02/29/20 24 02/29/2024 CBC WITH DIFFE RENTI AL/PL ATELE T eos (absolute) 0.2 x10e3 /uL 0.0-0. 4 normal Not Available [facility] ([facility]) [address] [place], [address], 03/01/2024 06:09:47 02/29/20 24 02/29/2024 CBC WITH DIFFE RENTI AL/PL ATELE T baso (absolute) 0.1 x10e3 /uL 0.0-0. 2 normal Not Available [facility] ([facility]) [address] [place], [address], 03/01/2024 06:09:47 02/29/20 24 02/29/2024 CBC WITH DIFFE RENTI AL/PL ATELE T immature granulocytes 1 % not estab. Not Available [facility] ([facility]) [address] [place], [address], 03/01/2024 06:09:47 02/29/20 24 02/29/2024 CBC WITH DIFFE RENTI AL/PL ATELE T immature grans (abs) 0.1 x10e3 /uL 0.0-0. 1 Not Available [facility] ([facility]) [address] [place], [address], 03/01/2024 06:09:47 02/29/20 24 02/29/2024 CBC WITH DIFFE RENTI AL/PL ATELE T NRBC RECEIVING SPECIALIST Not Available [facility] ([facility]) [address] [facility], [place], [address], 03/01/2024 06:09:47 02/29/20 24 02/29/2024 CBC WITH DIFFE RENTI AL/PL ATELE T hematology comments: RECEIVING SPECIALIST Not Available [facility] ([facility]) [address] [facility], [place], [address], 03/01/2024 06:09:47 02/29/20 24 03/01/2024 COMP. METAB OLIC PANEL (14) glucose 90 mg/dL 70-99 normal Not Available [facility] ([facility]) [address] [facility] [place], [address], 03/01/2024 06:09:48 02/29/20 24 03/01/2024 COMP. METAB OLIC PANEL (14) BUN 9 mg/dL 6-24 normal Not Available [facility] ([facility]) [address] [place], [address], 03/01/2024 06:09:48 02/29/20 24 03/01/2024 COMP. METAB OLIC PANEL (14) creatinine 0.82 mg/dL 0.57-1 .00 normal Not Available [facility] ([facility]) [address] [facility], [place], [address], 03/01/2024 06:09:48 02/29/20 24 03/01/2024 COMP. METAB OLIC PANEL (14) eGFR 89 mL/mi n/1.7 3 >59 normal Not Available [facility] ([facility]) [address] [place], [address], 03/01/2024 06:09:48 02/29/20 24 03/01/2024 COMP. METAB OLIC PANEL (14) BUN/creatini ne ratio 11 9-23 normal Not Available [facility] ([facility]) [address] [facility] [place], [address], 03/01/2024 06:09:48 02/29/20 24 03/01/2024 COMP. METAB OLIC PANEL (14) sodium 138 mmol/ L 134-14 4 normal Not Available [facility] ([facility]) [address] [facility] [place], [address], 03/01/2024 06:09:48 02/29/20 24 03/01/2024 COMP. METAB OLIC PANEL (14) potassium 4.3 mmol/ L 3.5-5. 2 normal Not Available [facility] ([facility]) [address], [place], [address], 03/01/2024 06:09:48 02/29/20 24 03/01/2024 COMP. METAB OLIC PANEL (14) chloride 100 mmol/ L 96-106 normal Not Available [facility] ([facility]) [address] [facility] [place], [address], 03/01/2024 06:09:48 02/29/20 24 03/01/2024 COMP. METAB OLIC PANEL (14) carbon dioxide, total 26 mmol/ L 20-29 normal Not Available [facility] ([facility]) [address] [facility] [place], [address], 03/01/2024 06:09:48 02/29/20 24 03/01/2024 COMP. METAB OLIC PANEL (14) calcium 9.7 mg/dL 8.7-10 .2 normal Not Available [facility] ([facility]) [address] [facility] [place], [address], 03/01/2024 06:09:48 02/29/20 24 03/01/2024 COMP. METAB OLIC PANEL (14) protein, total 7.4 g/dL 6.0-8. 5 normal Not Available [facility] ([facility]) [address] [place], [address], 03/01/2024 06:09:48 02/29/20 24 03/01/2024 COMP. METAB OLIC PANEL (14) albumin 4.6 g/dL 3.9-4. 9 normal Not Available [facility] ([facility]) [address] [place], [address], 03/01/2024 06:09:48 02/29/20 24 03/01/2024 COMP. METAB OLIC PANEL (14) globulin, total 2.8 g/dL 1.5-4. 5 Not Available [facility] ([facility]) [address] [place], [address], 03/01/2024 06:09:48 02/29/20 24 03/01/2024 COMP. METAB OLIC PANEL (14) bilirubin, total 0.5 mg/dL 0.0-1. 2 normal Not Available [facility] ([facility]) [address] [place], [address], 03/01/2024 06:09:48 02/29/20 24 03/01/2024 COMP. METAB OLIC PANEL (14) alkaline phosphatase 88 IU/L 44-121 normal Not Available [facility] ([facility]) [address] [place], [address], 03/01/2024 06:09:48 02/29/20 24 03/01/2024 COMP. METAB OLIC PANEL (14) AST (SGOT) 20 IU/L 0-40 normal Not Available [facility] ([facility]) [address] [place], [address], 03/01/2024 06:09:48 02/29/20 24 03/01/2024 COMP. METAB OLIC PANEL (14) ALT (SGPT) 23 IU/L 0-32 normal Not Available [facility] ([facility]) [address] [place], [address], 03/01/2024 06:09:48 02/29/2003/01/2024 MAGNE SIUM magnesium 2.3 mg/dL 1.6-2. 3 normal Not Available [facility] ([facility]) [address] [place], [address], 03/01/2024 06:09:49 03/28/2003/29/2024 CBC WITH DIFFE RENTI AL/PL ATELE T WBC 13.6 x10e3 /uL 3.4-10 .8 above high normal Not Available [facility] ([facility]) [address] [place], [address], 03/29/2024 06:10:43 03/28/2003/29/2024 CBC WITH DIFFE RENTI AL/PL ATELE T RBC 5.27 x10e6 /uL 3.77-5 .28 normal Not Available [facility] ([facility]) [address] [place], [address], 03/29/2024 06:10:43 03/28/2003/29/2024 CBC WITH DIFFE RENTI AL/PL ATELE T hemoglobin 14.8 g/dL 11.1-1 5.9 normal Not Available [facility] ([facility]) [address] [place], [address], 03/29/2024 06:10:43 03/28/2003/29/2024 CBC WITH DIFFE RENTI AL/PL ATELE T hematocrit 46.3 % 34.0-4 6.6 normal Not Available [facility] ([facility]) [address] [place], [address], 03/29/2024 06:10:43 03/28/2003/29/2024 CBC WITH DIFFE RENTI AL/PL ATELE T MCV 88 fL 79-97 normal Not Available [facility] ([facility]) [address] [place], [address], 03/29/2024 06:10:43 03/28/20 24 03/29/2024 CBC WITH DIFFE RENTI AL/PL ATELE T MCH 28.1 pg 26.6-3 3.0 normal Not Available [facility] ([facility]) [address] [facility], [place], [address], 03/29/2024 06:10:43 03/28/2003/29/2024 CBC WITH DIFFE RENTI AL/PL ATELE T MCHC 32.0 g/dL 31.5-3 5.7 normal Not Available [facility] ([facility]) [address] [facility], [place], [address], 03/29/2024 06:10:43 03/28/20 24 03/29/2024 CBC WITH DIFFE RENTI AL/PL ATELE T RDW 14.4 % 11.7-1 5.4 Not Available [facility] ([facility]) [address] [facility], [place], [address], 03/29/2024 06:10:43 03/28/2003/29/2024 CBC WITH DIFFE RENTI AL/PL ATELE T platelets 354 x10e3 /uL 150-45 0 normal Not Available [facility] ([facility]) [address] [facility], [place], [address], 03/29/2024 06:10:43 03/28/2003/29/2024 CBC WITH DIFFE RENTI AL/PL ATELE T neutrophils 63 % not estab. normal Not Available [facility] ([facility]) [address] [place], [address], 03/29/2024 06:10:43 03/28/2003/29/2024 CBC WITH DIFFE RENTI AL/PL ATELE T lymphs 26 % not estab. normal Not Available [facility] ([facility]) [address] [place], [address], 03/29/2024 06:10:43 03/28/20 24 03/29/2024 CBC WITH DIFFE RENTI AL/PL ATELE T monocytes 7 % not estab. normal Not Available [facility] ([facility]) [address] [facility], [place], [address], 03/29/2024 06:10:43 03/28/2003/29/2024 CBC WITH DIFFE RENTI AL/PL ATELE T eos 2 % not estab. normal Not Available [facility] ([facility]) [address] [facility], [place], [address], 03/29/2024 06:10:43 03/28/2003/29/2024 CBC WITH DIFFE RENTI AL/PL ATELE T basos 1 % not estab. normal Not Available [facility] ([facility]) [address] [place], [address], 03/29/2024 06:10:43 03/28/2003/29/2024 CBC WITH DIFFE RENTI AL/PL ATELE T immature cells RECEIVING SPECIALIST Not Available [facility] ([facility]) [address] [place], [address], 03/29/2024 06:10:43 03/28/20 24 03/29/2024 CBC WITH DIFFE RENTI AL/PL ATELE T neutrophils (absolute) 8.8 x10e3 /uL 1.4-7. 0 above high normal Not Available [facility] ([facility]) [address] [place], [address], 03/29/2024 06:10:43 03/28/2003/29/2024 CBC WITH DIFFE RENTI AL/PL ATELE T lymphs (absolute) 3.5 x10e3 /uL 0.7-3. 1 above high normal Not Available [facility] ([facility]) [address] [place], [address], 03/29/2024 06:10:43 03/28/20 24 03/29/2024 CBC WITH DIFFE RENTI AL/PL ATELE T monocytes(ab solute) 1.0 x10e3 /uL 0.1-0. 9 above high normal Not Available [facility] ([facility]) [address] [facility], [place], [address], 03/29/2024 06:10:43 03/28/20 24 03/29/2024 CBC WITH DIFFE RENTI AL/PL ATELE T eos (absolute) 0.2 x10e3 /uL 0.0-0. 4 normal Not Available [facility] ([facility]) [address] [facility], [place], [address], 03/29/2024 06:10:43 03/28/20 24 03/29/2024 CBC WITH DIFFE RENTI AL/PL ATELE T baso (absolute) 0.1 x10e3 /uL 0.0-0. 2 normal Not Available [facility] ([facility]) [address] [facility], [place], [address], 03/29/2024 06:10:43 03/28/2003/29/2024 CBC WITH DIFFE RENTI AL/PL ATELE T immature granulocytes 1 % not estab. Not Available [facility] ([facility]) [address] [place], [address], 03/29/2024 06:10:43 03/28/20 24 03/29/2024 CBC WITH DIFFE RENTI AL/PL ATELE T immature grans (abs) 0.1 x10e3 /uL 0.0-0. 1 Not Available [facility] ([facility]) [address] [place], [address], 03/29/2024 06:10:43 03/28/20 24 03/29/2024 CBC WITH DIFFE RENTI AL/PL ATELE T NRBC RECEIVING SPECIALIST Not Available [facility] ([facility]) [address] [place], [address], 03/29/2024 06:10:43 03/28/20 24 03/29/2024 CBC WITH DIFFE RENOBDULIO AL/PL ELY Burrell hematology comments: RECEIVING SPECIALIST Not Available [facility] ([facility]) [address], [place], [address], 03/29/2024 06:10:43 02/27/20 24 02/26/2024 elect rocar diogr am No observ ation record ed. BARCODE In-Office Order Internal Use Only DO Not Attach Compendium DO Not Attach Compendium, Do Not Delete/merge, [id number] 02/27/2024 10:49:15 06/05/2006/05/2024 MAMMO , scree baljit, [...] Lay letter mailed to jerrod burrell WSN: [id number] Orderi ng Physic peggy: Forest Hernandez Dictat ed By: Damian Franklin MD Dictat ed Date/T adrian: 9:35 am Review ed By: Damian Franklin MD Signed By: Damian Franklin MD Signed Date/T adrian: 9:35 am Transc ribed By: YODIT Transc riptio n Date/T adrian: 9:33 am Birads : Jerrod burrell Class: Outpat ient [id number] [facility] [address], [place], [address], 06/05/2024 09:46:13 06/05/2006/05/2024 MAMMO , scree baljit, bilat eral No observ ation record ed. [facility] Orders [address], [place], [address], 06/06/2024 09:01:43 Result Notes Documentation Provider Name [...] (Negative) Lay letter mailed to patient WSN: [id number] Ordering Physician: Forest Bautista Dictated By: Donnie Soto MD Dictated Date/Time: 06/05/24 9:35 am Reviewed By: Donnie Soto MD Signed By: Donnie Soto MD Signed Date/Time: 06/05/24 9:35 am Transcribed By: YODIT Resource Forester Date/Time: 06/05/24 9:33 am Birads: [facility] 09:46:13 Problems Name Problem SNOMED Code Status Onset Date Resolution Date Notes Provider Name and Address Organization Details Recorded Time Obesity 731856150 Active Argelia Christian null, [facility] 0 14:09:01 Body fluid retention 00292830 Active Argelia Christian null, [facility] 0 14:09:01 Cancer cervix - screening done Active Argelia Christian null, [facility] 0 14:09:01 Smoker 83871331 Active Argelia Christian null, [facility] 0 14:09:01 Gastroeso phageal reflux disease 183533964 Active Argelia Christian null, [facility] 0 14:09:01 Abnormal uterine bleeding 65843555565 100 Active Argelia Christian null, [facility] 0 14:09:01 Cyst of thyroid 18138421 Active Argelia Christian null, [facility] 0 14:09:01 Vaginitis 98633338 Active Argelia Christian null, [facility] 0 14:09:01 Polyp of cervix 49997479 Active Argelia Christian null, [facility] 0 14:09:01 Vaginal discharge 625201344 Active Argelia Christian null, [facility] 1 12:03:13 Anemia 831038765 Active Argelia Christian null, [facility] 1 12:03:13 Recurrent urinary tract infection 995464099 Active Argelia Christian null, [facility] 1 12:03:13 Headache disorder 445938508 Active 2013 Argelia Christian null, [facility] 1 12:03:13 Morbid obesity 709077752 Active 2013 Argelia Christian null, [facility] 1 12:03:13 Obstructi ve sleep apnea syndrome 73987120 Active 2015 Argelia Christian null, [facility] 1 12:03:13 Benign intracran ial hypertens ion 24230281 Active 2015 Argelia Gino van, [facility] 0 14:09:01 Lactose intoleran ce Active 2017 Argelia Christian null, [facility] 1 12:03:13 Migraine 66755012 Active 2017 Argelia Christian null, [facility] 0 14:09:01 Anxiety 78308297 Active 2017 Argelia Christian null, [facility] 0 14:09:01 Depressiv e disorder 47163188 Active 2017 Argelia van, [facility] 0 14:09:01 Polyp of corpus uteri 51673366 Active 2017 Argelia Gino van, [facility] 1 12:03:13 Vaginitis 92694143 Completed 201705/14/2018 JOSÉ MIGUEL Olivas, [facility] 8 15:28:58 Thyroid nodule 908078475 Active 2018 Argelia Gino van, [facility] 1 12:03:13 Vitamin D deficienc y 56287945 Active 2021 Deb Hatch PA-C [address] [facility] [address], [place], [address] , [facility] 5 10:51:18 Recurrent major depressiv e episodes, moderate 695940747 Active 2021 ESTEFANI Brand [address] [facility] [address], [place], [address] , [facility] 2 12:51:59 Hyperlipi demia 46647353 Active 2021 ESTEFANI Brand [address], [place], [address] , [facility] 2 12:51:59 Iron deficienc y anemia 00914880 Active 2021 [facility]acios, [facility] [address] [facility] [address], [place], [address] , [facility] 2 12:51:59 Pain of right knee joint 71043361636 4100 Active 2021 Leyda Palacios, [facility] [address] [place] [address] [address], [place], [address] , [facility] 2 16:08:35 Tobacco dependenc e syndrome 05691305 Active 2021 Leyda Palacios, [address], [place], [address] , [facility] 2 09:12:23 Tachycard ia 2576848 Active 2022 Leyda Palacios, [address], [place], [address] , [facility] 3 13:47:52 Allergic conjuncti vitis 336396583 Active 2022 Leyda Palacios, [facility] [address] [place] [address] [address], [place], [address] , [facility] 3 13:51:46 Essential hypertens ion 72296910 Active 2023 Debmagnus Hatch PA-C [address] [facility] [address], [place], [address] , [facility] 5 10:33:11 Edema of lower extremity 640473877 Active 2023 Leyda Palacios, [facility] [address] [facility] [address], [place], [address] , [facility] 4 11:32:14 Bilateral plantar fasciitis 26875277698 400577 Active 2023 ESTEFANI Brand [address] [address], [place], [address] , [facility] 4 11:41:20 Muscle spasm of cervical muscle of neck 07279576873 4 Active 2023 ESTEFANI Brand [address] [address], [place], [address] , [facility] 4 11:41:52 Palpitati ons 95357062 Active 2023 ESTEFANI Brand [address] [address], [place], [address] , [facility] 4 09:14:46 Gastritis 9070431 Active 2023 [facility] [address] [address], [place], [address] , [facility] 4 09:19:16 Antidepre ssant discontin uation syndrome Active 2023 ESTEFANI Brand [address] [address], [place], [address] , [facility] 4 11:01:19 Body mass index 40+ - severely obese 676667638 Active 2023 Deb Hatch PA-C [address] [address], [place], [address] , [facility] 5 10:32:55 Low back pain 453248795 Active 2024 ESTEFANI Brand [address] [address], [address] , [facility] 5 09:31:04 Problem Notes None recorded. Procedures Surgical History Date Name Laterality Status Provider Name and Address Organization Details Recorded Time 06/05/20 24 Most Recent Mammogram completed Sarahy Washington [facility] 06/05/2024 09:46:09 05/18/20 20 Mammogram screening completed Pauline boss [place] [facility] 11/23/2022 13:20:36 01/09/20 17 Hysteroscopy biopsy completed Pauline boss [place] [facility] 08/28/2017 15:16:57 01/09/20 17 Endometrial Biopsy completed Octaviaaki Eagle [facility] 09/03/2017 14:40:15 05/26/20 16 Date of Last Pap Smear completed Pauline boss [facility] 08/28/2017 15:15:45 06/11/19 12 lumbar puncture completed Pauline boss MA [facility] 05/14/2018 15:31:49 06/11/19 00 Tubal Ligation completed Pauline boss [place] [facility] 08/28/2017 15:01:23 06/11/18 98 ENT Surgery completed Joie Bryan MA [facility] 11/22/2021 15:32:49 Remove tonsils and adenoids completed Pauline boss [place] [facility] 08/28/2017 15:02:42 hysteroscopic bipolar electrosurgical excision of uterine fibroid completed Pauline boss [place] [facility] 05/14/2018 15:30:52 cholelithotomy completed Pauline boss MA [facility] 05/14/2018 15:31:10 Imaging Results None recorded. Procedure Notes None recorded. Medical Equipment None Reported. Allergies Allergen ID Allergen Name Allergen Category Reaction Reaction Severity Criticality Documentation Date Start Date Code Code System Note Provider Name and Address Organization Details Recorded Time 95716 Substance with sulfonami de structure and antibacte rial mechanism of action (substanc e) medicatio n abdominal pain vomiting Not available Not available Not available 08/28/2017 38085 8009 SNOMED BACTR IM JOSÉ MIGUEL Menjivar [facility] 0 10:11:45 89035 cyclobenz aprine hydrochlo ride medicatio n itching severe Not available 08/28/2017 31657 RxNorm JOSÉ MIGUEL Menjivar, [facility] 3 12:56:01 32781 blueberry extract food anaphylax is severe Not available 08/28/2017 92955 29 [facility] 12:56:01 72780 Bactrim medicatio n Not available Not available Not available 12/04/20172011 36978 9 RxNorm JOSÉ MIGUEL Menjivar, [facility] 3 12:56:01 59030 cyclobenz aprine medicatio n itching severe Not available 09/19/2019 01963 RxNorm FLEXE RIL JOSÉ MIGUEL Menjivar, [facility] 0 10:11:55 00748 omeprazol e medicatio n itching Not available Not available 03/28/2024 7646 RxNorm all over body itch JOSÉ MIGUEL Laws, [facility] 4 13:06:11 Medications Name Sig Start [...] Relief 50 mcg/actua tion nasal spray,saadia pension Joseph 1 spray every day by intranas al [...] Updated DateTime 5 161.29 cm 46.9 kg/m2 641721. 05 g 99 /min 96 % 98.3 [degF] 133/84 mm[Hg] Daphney Fernandez LPN [facility] 5 15:05:35 Date Recorded Body mass index (BMI) Body weight Systolic And Diastolic Provider Name and Address Organization Details Last Updated DateTime 08/27/2024 46.6 kg/m2 719273.16 g 138/88 mm[Hg] Leyda Palacios, [facility] [address], [place], [address], [facility] 08/27/2024 09:36:44 Date Recorded Body height Heart rate Oxygen saturation Body temperature Systolic And Diastolic Provider Name and Address Organization Details Last Updated DateTime 5 161.29 cm 97 /min 96 % 97.9 [degF] 144/88 mm[Hg] Van araujo [facility] 5 09:15:40 Date Recorded Body height Body mass index (BMI) Body weight Heart rate Oxygen saturation Body temperature Systolic And Diastolic Provider Name and Address Organization Details Last Updated DateTime 5 161.29 cm 45.5 kg/m2 175590. 61 g 102 /min 95 % 98.3 [degF] 132/87 mm[Hg] Marlene Magana [facility] 5 10:15:00 Date Recorded Systolic And Diastolic Provider Name and Address Organization Details Last Updated DateTime 03/28/2024 138/80 mm[Hg] [facility], [facility] [address], [place], [address], [facility] 03/28/2024 13:27:53 Date Recorded Body height Body mass index (BMI) Body weight Heart rate Oxygen saturation Body temperature Systolic And Diastolic Provider Name and Address Organization Details Last Updated DateTime 4 161.29 cm 47.8 kg/m2 210556. 31 g 112 /min 96 % 97.7 [degF] 143/92 mm[Hg] Dana Vale MA [facility] 4 13:08:23 Date Recorded Body height Body mass index (BMI) Body weight Heart rate Oxygen saturation Body temperature Systolic And Diastolic Provider Name and Address Organization Details Last Updated DateTime 4 161.29 cm 47.9 kg/m2 658053. 9 g 98 /min 97 % 98 [degF] 136/89 mm[Hg] Dana Vale MA [facility] 4 08:28:38 Social History Question Answer Notes LastModified by Organizat ion Details LastModified Time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 thoracic spine problems. NO numbness or weakness in arms. Deb Hatch PA-C [address] [address], [place], [address], [facility] 08/05/2024 16:18:40 5 text/html Generic HPI TemplateReported by PatientPresents for weight loss med follow-up.She does not eat much 1 meal/ day not a big meal. snacking during the day,Hurt her heel so is not exercising much, is using vibration plate.Foods are typical prydeinig food- rice, chicken, beef, eats salad and lost of spinach. started zepbound in may, still on lowest dose, does feel heartburn the 1st couple of days but no change in weight/ not much change in appetite. now eating two meals/ day and tea in the morning. 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 Bilateral low back pain, worse on the left. no radiation of pain, no numbness or tingling. Does walk and sit at work. no heavy lifting, no injury or trauma that she can recall. Leyda Palacios, [address] [address], [place], [address], [facility] 08/27/2024 12:17:08 5 text/html Hypertension F/UReported [...] and had to decrease activity.Foods are typical prydeinig food- rice, chicken, beef, eats salad and lost of spinach.ROS as noted in the HPI Deb Hatch PA-C [address] [facility] [address], [place], [address], [facility] 10/17/2024 14:21:13 OBGyn Episode No OBEpisode recorded.
--- OUTSIDE RECORDS SUMMARY | 2025-05-21 22:33 | XMS_ITS | Clinical Summary ---
Author Organization [facility] Address [address] [place] [address] Care Team Providers Care Watch Leader Name Role Phone Leyda Palacios Primary Care Provider [phone] Allergies Active Allergy Reactions Criticality Noted Date Comments Sulfamethoxazole-Trimethoprim Unknown 2011 Blueberry Anaphylaxis High Cyclobenzaprine Unknown,Itching High Omeprazole Hives,Itching 02/28/2024 Sulfa (Sulfonamide Antibiotics) Abdominal Pain Medications * This document contains information received from the source organization and may not represent a complete record from that organization. LORazepam (ATIVAN) 0.5 mg tablet Take 0.5 mg by mouth 2 times a day as needed. 017 Active fluticasone (FLONASE) 50 mcg/actuation nasal spray Flonase 50 MCG/ACT Nasal Suspension USE 2 SPRAYS IN EACH NOSTRIL ONCE DAILY Quantity: 48; Refills: 3 [id number] GM Bottle Active MULTIVITAMIN WITH IRON (DAILY MULTIPLE VITAMINS/IRON ORAL) Daily Multiple Vitamins/Iron Oral Tablet TAKE 1 TABLET ONCE DAILY. Refills: 0 Active Active coenzyme Q10 100 mg capsule Take 100 mg by mouth daily. Active furosemide (LASIX) 20 mg tablet TAKE ONE-HALF TABLET BY MOUTH EVERY OTHER DAY NEEDED 15 tablet 5 018 Active cholecalciferol (VITAMIN D3) 2,000 unit tablet Take 1 tablet by mouth daily. Active ferrous sulfate 142 mg (45 mg iron) tablet extended release Take 1 tablet by mouth daily. Active ascorbic acid, vitamin C, (VITAMIN C) 250 mg tablet Take 250 mg by mouth every morning. Active metroNIDAZOLE (METROGEL) 0.75% vaginal gel metronidazole 0.75 % vaginal gel Insert 1 applicatorful twice a week by vaginal route as directed. Active sertraline (ZOLOFT) 100 mg tablet Take 150 mg by mouth daily. Per pt take 250 mg daily Active eletriptan (RELPAX) 40 mg tabletIndications :Other headache syndrome Take 1 tablet (40 mg total) by mouth once as needed for migraine for up to 1 dose. May repeat one time after 2 hours if needed. 6 tablet 5 022 Active butalbitaL-acetam qbuy-dda-hby (FIORICET WITH CODEINE) 34-571-10-30 mg per capsuleIndication s:Other headache syndrome Take 2 capsules by mouth every 4 hours as needed for headache. (Disp 30 tabs per 30 days) 30 capsule 2 023 Active fremanezumab-vfrm (Ajovy Autoinjector) 225 mg/1.5 mL auto-injector Inject 1.5 mL (225 mg total) under the skin every 28 days. 1.5 mL 5 025 Active rimegepant ODT 75 mg (Nurtec ODT) 75 mg tablet,disintegra ting disintegrating tablet Dissolve 1 tablet (75 mg total) in the mouth daily as needed (migraine). 16 tablet 5 025 Active nortriptyline (PAMELOR) 25 mg capsuleIndication s:Other headache syndrome,Chronic migraine without aura without status migrainosus, not intractable Take 1 capsule (25 mg total) by mouth nightly. at bedtime 90 capsule 2 025 Active betamethasone dipropionate (DIPROLENE) 0.05 % cream Apply 1 application topically to the affected area daily as needed. 0 018 2024 Discontinued(D iscontinued by Patient) clobetasol (OLUX) 0.05 % topical foam Apply 1 application topically to the affected area as needed. 2024 Discontinued(D iscontinued by Patient) diazePAM (VALIUM) 5 mg tablet every 12 (twelve) hours. 2024 Discontinued(D iscontinued by Patient) fluocinolone and shower cap 0.01 % oil 5 mL. 2024 Discontinued(D iscontinued by Patient) terbinafine (LamiSIL) 250 mg tablet TAKE 1 TABLET BY MOUTH ONCE DAILY FOR 12 WEEKS REPEAT LAB WORK 3 WEEKS INTO TREATMENT 019 2024 Discontinued(D iscontinued by Patient) meloxicam (MOBIC) 15 mg tablet TAKE 1 TABLET BY MOUTH ONCE DAILY FOR 10 DAYS THEN NEEDED 020 2024 Discontinued(D iscontinued by Patient) rizatriptan (MAXALT) 10 mg tabletIndications :Other headache syndrome Take 1 tablet (10 mg total) by mouth once as needed for migraine for up to 1 dose. SOON POSSIBLE FOR MIGRAINE. MAY REPEATIN 1 HOUR IF NEEDED 9 tablet 5 021 2024 Discontinued(D iscontinued by Patient) topiramate XR (Trokendi XR) 50 mgIndications:Oth er headache syndrome Take 2 pills daily 60 capsule 5 023 2024 Discontinued topiramate XR (Trokendi XR) 25 mg capsule,extended release 24hrIndications:O ther headache syndrome Take 1 capsule (25 mg total) by mouth daily. 30 capsule 5 023 2024 Discontinued topiramate XR (Trokendi XR) 100 mgIndications:Chr onic migraine without aura without status migrainosus, not intractable Take 1 capsule (100 mg total) by mouth once a day. 30 capsule 5 023 2024 Discontinued erenumab-aooe (AIMOVIG) 70 mg/mL auto-injectorIndi cations:Other headache syndrome Inject 1 mL (70 mg total) under the skin every 28 days. 1 mL 5 024 2024 Discontinued(D iscontinued by Patient) fremanezumab-vfrm (Ajovy Autoinjector) 225 mg/1.5 mL auto-injectorIndi cations:Chronic migraine without aura without status migrainosus, not intractable Inject 1.5 mL (225 mg total) under the skin every 28 days. 1 mL 5 024 2024 Discontinued zaleplon (SONATA) 5 mg capsuleIndication s:Other insomnia Take 1 capsule (5 mg total) by mouth nightly. 30 capsule 5 024 2024 Discontinued(D iscontinued by Patient) fremanezumab-vfrm (AJOVY) 225 mg/1.5 mL auto-injectorIndi cations:Other headache syndrome Inject 1.5 mL (225 mg total) under the skin every 28 days. 1 mL 5 024 2024 Discontinued fremanezumab-vfrm (Ajovy Autoinjector) 225 mg/1.5 mL auto-injector Inject 1.5 mL (225 mg total) under the skin every 28 days. 1.5 mL 5 024 2024 Discontinued Active Problems Problem Noted Date Diagnosed Date Thyroid nodule 07/24/2018 Idiopathic intracranial hypertension 12/31/2015 Obstructive sleep apnea syndrome 07/09/2015 Chronic mixed headache syndrome 12/31/2013 Morbid or severe obesity due to excess calories 12/31/2013 Encounters Date Type Department Care Team Description 05/21/2025 4:00 PM EST Office Visit [facility] [address] [place] [address] Ulises Pearson NP Chronic mixed headache syndrome; Chronic migraine without aura without status migrainosus, not intractable 05/21/2025 Telephone [facility] [address] [place] [address] Ulises Pearson NP Insurance Investigation (Ajovy 225mg/1.5ml Auto-Injector and Nurtec 75mg ODT) from Last 3 Months Family History Medical History Relation Name Comments [...] Mass Index 46 05/21/2025 3:54 PM EST Plan of Treatment Upcoming Encounters Date Type Department Care Team (Late st Contact Info) Description 07/06/2025 1:00 PM EST Office Visit [facility] [address] [place] [address] Ulises Pearson NP [address] [place] [address] Health Maintenance Due Date Last Done Comments Cervical Cancer Screening 1977 Cologuard 1977 Colon Cancer Screening 1977 Colonoscopy 1977 FOBT / Fit Test 1977 HIV Screening 1977 HPV and Pap Smear 1977 Hepatitis C Screening 1977 Pap Smear 1977 Sigmoidoscopy 1977 Hepatitis B Vaccines (1 of 3 - 19+ 3-dose series) 1996 Diabetes Screening 2012 Mammogram 12/13/2020 12/13/2018 Alcohol/Substance Use Screening 06/11/2024 Depression Screening and Follow-Up 06/11/2024 Social Drivers of Health Annual Screening 06/11/2024 Influenza Vaccine (#1) 2025 COVID-19 Vaccine ( - 2024- season) 02/09/202501/2021, 07/26/2020 DTaP,Tdap,and Td Vaccines (3 - Td or Tdap) 11/07/2026 11/07/2016, 02/08/2015 Pneumococcal Vaccine: Pediat asa (0-5 Years) and At-Risk Patients (6-50 Years) (3 of 3 - PCV20 or PCV21) 09/18/2027 11/07/2016, 11/07/2016 Insurance HSNO/FREE CARE Care Teams Watch Leader Relationship Specialty Start Date End Date Leyda Palacios [address] [facility] [address] [place] [address] PCP - General Internal Medicine 07/03/18
--- OUTSIDE RECORDS SUMMARY | 2025-05-21 22:33 | XMS_ITS | Encounter Summary ---
Author Organization [facility] Address [address] [place] [address] Care Team Providers Care Desulfurizer Hand Name Role Phone Leyda Palacios Primary Care Provider [phone] Encounter Details Date Type Department Care Team (Late st Contact Info) Description 07/05/2020 myChart Message [facility] [address] [place] [address] [phone] Yoshi Avila MD [address] [place] [address] Visit Follow-Up Question Social History Tobacco Use [...] Upcoming Encounters Date Type Department Care Team ([facility] st Contact Info) Description 07/06/2025 1:00 PM EST Office Visit [facility] [address] [place] [address] Ulises Pearson NP [address] [place] [address] documented as of this encounter Visit Diagnoses Not on filedocumented in this encounter Care Teams Desulfurizer Hand Relationship Specialty Start Date End Date Leyda Palacios [address] [address] PCP - General Internal Medicine 07/03/18 documented as of this encounter
== END 2025-05-20 15:02 | disposition home or self-care (01) ==
LOC: HO.HOSX 15:01
PROVIDERS: Visit Provider Orthopaedic Surgery
DX: S56.419A Strain of extensor muscle, fascia and tendon of finger, unspecified finger at forearm level, initial encounter (principal); M20.012 Mallet finger of left finger(s); M25.642 Stiffness of left hand, not elsewhere classified; X58.XXXA Exposure to other specified factors, initial encounter
CPT/HCPCS: 73130